=== PATIENT | female | born 1960 | race Caucasian/White ===

== ENCOUNTER → 2018-11-16 07:16 | Outpatient (CLI) | payer MEDICARE, MEDICAID, SELFPAY ==
--- NOTE | 2018-11-16 07:20 | NM_ITS ---
CARDIOLITE SPECT MYOCARDIAL PERFUSION LEXISCAN, REST AND STRESS: [facility] REVIEW QGS EF AND WALL MOTION EVALUATION: QPS - PERFUSION EVALUATION HISTORYcad DOSE: 10.59 mCi technetium 99m mibi intravenously at rest followed by 30.2 mCi technetium 99m mibi following the intravenous ministration of 0.4 mg of Lexiscan. Resting blood pressure is 113/69. Stress blood pressure 107/58. FINDINGS: Ejection fraction is calculated to be 62%. Stress images reveal decreased activity in the anterior and portion of the lateral wall. Rest images reveal improved activity in both areas. IMPRESSION: High risk abnormal stress test with anterior and a portion of the lateral wall being ischemic. Normal ejection fraction normal wall motion
--- NOTE | 2018-11-16 07:20 | CI_ITS ---
Cerebrovascular Exam Indications: 780.4 Dizziness and giddiness. IMPRESSIONS 1. The bilateral vertebral arteries are patent with normal antegrade flow. 2. Study suggests less than 20% stenosis involving the right internal carotid artery and the left internal carotid artery. 3. Small vessels noted. Carotid duplex study. Complete study and Doppler flow study including spectral analysis, color and marcus scale imaging. Location: Vascular laboratory. Patient status: Outpatient. Tables: Arterial flow: + +--------+--------+ Location V sys V ed + +--------+--------+ Right CCA - proximal 111cm/s 23.6cm/s + +--------+--------+ Right CCA - distal 88.8cm/s 22cm/s + +--------+--------+ Right ECA 138cm/s -------- + +--------+--------+ Right ICA - proximal 59cm/s 22.6cm/s + +--------+--------+ Right ICA - mid 80cm/s 37.5cm/s + +--------+--------+ Right ICA - distal 74.4cm/s 29.2cm/s + +--------+--------+ Right vertebral 35.3cm/s -------- + +--------+--------+ Left CCA - proximal 91cm/s 22.1cm/s + +--------+--------+ Left CCA - distal 74.4cm/s 22.6cm/s + +--------+--------+ Left ECA 110cm/s -------- + +--------+--------+ Left ICA - proximal 84.4cm/s 29.8cm/s + +--------+--------+ Left ICA - mid 88.8cm/s 39.7cm/s + +--------+--------+ Left ICA - distal 83.3cm/s 35.8cm/s + +--------+--------+ Left vertebral 71.1cm/s -------- + +--------+--------+ Velocity ratios: + + + + + + Right, V sys Right, V ed Left, V sys Left, V ed + + + + + + Max ICA/dist CCA 0.9 1.7 1.19 1.76 + + + + + + (Report amended ) Electronically signed by: Arnold Kaur [id number]
--- NOTE | 2018-11-16 07:43 | HMH.ITSHM ---
Current Home Medications as stated by this patient Trish Valle or patient access representative. []ASA ROSUVASTATIN LISINOPRIL CLOPIDGREL METOPROLOL HYDROCHLOROTHIAZIDE
[2018-11-16 13:12] LABS: Anion Gap 11.3 mEq/L (5-15); Blood Urea Nitrogen 15 mg/dL (7-18); Calcium 9.2 mg/dL (8.5-10.1); Carbon Dioxide 29 mmol/L (21.0-32.0); Chloride 100 mmol/L (98-107); Creatinine,Serum 0.73 mg/dL (0.55-1.02); Estimated Glomerular Filt Rate 82 ml/min (>60); GFR (African American) 100 ML/MIN (>60); Glucose 108 mg/dL (74-106); Potassium 4.3 mmoL/L (3.5-5.1); Sodium 136 mmol/L (136-145)
== END ==
PROVIDERS: PCP Internal Medicine Cardiovascular Disease; Visit Provider Internal Medicine Cardiovascular Disease
DX: I25.10 Atherosclerotic heart disease of native coronary artery without angina pectoris (principal); R06.02 Shortness of breath; R20.0 Anesthesia of skin; R60.0 Localized edema
CPT/HCPCS: 36415; 78452; 80048; 93017; 93880; A9502; J2785

== ENCOUNTER → 2018-12-22 12:17 | Outpatient (CLI) | payer MEDICARE, MEDICAID, SELFPAY ==
[2018-12-22 13:39] LABS: Anion Gap 13.2 mEq/L (5-15); Blood Urea Nitrogen 12 mg/dL (7-18); Calcium 9.4 mg/dL (8.5-10.1); Carbon Dioxide 30 mmol/L (21.0-32.0); Chloride 100 mmol/L (98-107); Creatinine,Serum 0.76 mg/dL (0.55-1.02); Estimated Glomerular Filt Rate 79 ml/min (>60); GFR (African American) 95 ML/MIN (>60); Glucose 105 mg/dL (74-106); Potassium 4.2 mmoL/L (3.5-5.1); Sodium 139 mmol/L (136-145)
== END ==
PROVIDERS: Visit Provider Internal Medicine Cardiovascular Disease
DX: E78.2 Mixed hyperlipidemia (principal); I10 Essential (primary) hypertension; I25.10 Atherosclerotic heart disease of native coronary artery without angina pectoris
CPT/HCPCS: 36415; 80048

== ENCOUNTER 2019-10-19 20:58 | Emergency (ER) | payer MEDICARE, MEDICAID, SELFPAY ==
[2019-10-19 20:57] VITALS: BP 122/87; PULSE 116; RESP 18; TEMP 36.7; O2SAT 98; BMI 35.2
[2019-10-19 21:01] VITALS: BP 122/87; PULSE 101; RESP 15; O2SAT 99
--- NOTE | 2019-10-19 21:06 | ECG_ITS ---
APPROVED REPORT Exam: Resting ECG HR:108 bpm ECG Measurements Heart Rate 108 AXES WA 140 P 68 QRSd 84 QRS 60 QT 344 T 71 QTc 460 <Conclusion> Sinus tachycardia Left atrial abnormality Low voltage QRS Borderline ECG Electronically signed by : Sam Garza, 10/21/2019 14:15:43
--- NOTE | 2019-10-19 21:07 | XR_ITS ---
PROCEDURE: XR CHEST 2V CLINICAL HISTORY: arrythmia, chest discomfort COMPARISON: CXR CHEST(2 VIEWS-NOT PORTABLE) from 04/01/2013 Chest from 11/07/2018 FINDINGS: The cardiomediastinal silhouette and pulmonary vascularity are within normal limits. There is mild prominence of the interstitium with coarsening of the bronchovascular markings. No lobar consolidation or collapse evident. The No acute bony abnormalities. IMPRESSION: Mild prominence of the interstitium. This may be better evaluated with CT if clinically desired otherwise negative Dictated by: Arnold Kaur MD 10/19/2019 22:19 Electronically signed by Arnold Kaur MD in [place] 10/19/2019 22:19
[2019-10-19 21:25] LABS: Basophils # 0.2 K/mm3 (0-0.2); Basophils % 1.3 % (0.1-2.0); Eosinophils # 0.2 K/mm3 (0.0-0.4); Eosinophils % 1.2 % (0.1-12.0); Hematocrit 48.3 % (37.0-47.0); Hemoglobin 16.2 g/dL (12.2-16.2); Lymphocytes # 3.6 K/mm3 (0.7-4.5); Lymphocytes % 24.7 % (10-50); Mean Corpuscular HGB Conc 33.6 g/dL (31.8-35.4); Mean Corpuscular Hemoglobin 29.9 pg (27.0-31.2); Mean Corpuscular Volume 89.1 fl (81-99); Mean Platelet Volume 7.1 fl (7.4-10.4); Monocytes # 0.5 K/mm3 (0.1-1.0); Monocytes % 3.7 % (1.7-9.3); Neutrophils % 69.1 % (37.0-80.0); Platelet Count 298 K/mm3 (142-424); Red Blood Count 5.42 M/mm3 (4.20-5.40); Red Cell Distribution Width 14.8 % (11.5-17.5); White Blood Count 14.5 K/mm3 (4.8-10.8)
[2019-10-19 21:26] LABS: Chloride 99 mmol/L (98-107); Potassium 3.8 mmoL/L (3.5-5.1); Sodium 142 mmol/L (136-145)
[2019-10-19 21:29] LABS: Anion Gap 12.8 mEq/L (5-15); Blood Urea Nitrogen 15 mg/dl (7-17); Carbon Dioxide 34 mmol/L (22.0-30.0); Creatinine Clearance Estimated 143 mL/min (50-200); Estimated Glomerular Filt Rate 86 ml/min (>60); GFR (African American) 104 ML/MIN (>60); Glucose 181 mg/dl (74-100)
[2019-10-19 21:35] VITALS: BP 126/94; PULSE 104; RESP 18; O2SAT 98
[2019-10-19 21:42] LABS: Troponin I < 0.01 ng/ml (0.00-0.034)
[2019-10-19 21:48] LABS: Triiodothryronine (T3) Uptake 30 % (23.5-40.5)
[2019-10-19 21:49] LABS: Free Thyroxine Index 2.7 ug/dL (5.93-13.13); T4 (Thyroxine) 9.1 ug/dl (5.53-11.0)
[2019-10-19 22:03] LABS: Thyroid Stimulating Hormone 4.45 uIU/mL (0.465-4.68)
[2019-10-19 22:05] VITALS: BP 126/84; PULSE 96; O2SAT 90
[2019-10-19 22:45] VITALS: BP 122/79; PULSE 90; RESP 16; O2SAT 90
--- NOTE | 2019-10-19 23:04 | HMH.EDARPALP ---
ED Disposition Clinical Impression: Supraventricular tachycardia Disposition: Home, Self-Care Condition on Discharge: Good Instructions: Paroxysmal Supraventricular Tachycardia Additional Instructions: see card in am Referrals: Renard Monterroso [Primary Care Provider] - Dm Case MD [Staff Physician] - - Critical Care Critical Care Time: No Attestation: On 10/19/19, the high probability of a clinically significant, sudden or life threatening deterioration of the following system(s) required my full and direct attention, intervention and personal management. The time I documented below is in addition to time spent performing reported procedures but includes the following listed in this critical care notation. Medical Decision Making - Medical Records Medical records reviewed: Yes: I reviewed the patient's medical records. - Todd Inquiry Pt receiving controlled substance: No Vital Signs: 10/19/19 20:57 10/19/19 21:01 10/19/19 21:35 Temperature 98.1 F Temperature Source Oral Pulse Rate [Right Brachial] 116 H 101 H 104 H Respiratory Rate 18 15 18 Blood Pressure [Right Arm] 122/87 122/87 126/94 H Blood Pressure Mean [Right Arm] 98 98 104 Blood Pressure Source [Right Arm] Automatic Cuff Automatic Cuff Blood Pressure Position [Right Arm] Sitting Sitting Sitting 02 Sat by Pulse Oximetry 98 99 98 Oxygen Delivery Method Room Air Room Air 10/19/19 22:05 Temperature Temperature Source Pulse Rate [Right Brachial] 96 H Respiratory Rate Blood Pressure [Right Arm] 126/84 Blood Pressure Mean [Right Arm] 98 Blood Pressure Source [Right Arm] Automatic Cuff Blood Pressure Position [Right Arm] Supine 02 Sat by Pulse Oximetry 90 L Oxygen Delivery Method Room Air - Lab Data Lab results reviewed: Yes: I reviewed the patient's lab results. Lab Results 10/19/19 21:07: WBC 14.5 H, RBC 5.42 H, Hgb 16.2, Hct 48.3 H, MCV 89.1, MCH 29.9, MCHC 33.6, RDW 14.8, Plt Count 298, MPV 7.1 L, Neut % (Auto) 69.1, Lymph % (Auto) 24.7, [place] % (Auto) 3.7, Eos % (Auto) 1.2, Baso % (Auto) 1.3, Neut # (Auto) 10.0 H, Lymph # (Auto) 3.6, [place] # (Auto) 0.5, Eos # (Auto) 0.2, Baso # (Auto) 0.2 10/19/19 21:07: Sodium 142, Potassium 3.8, Chloride 99, Carbon Dioxide 34 H, Anion Gap 12.8, BUN 15, Creatinine 0.70, Estimated Creat Clear 143, Estimated GFR 86, Est GFR ( Amer) 104, Glucose 181 H, Calcium 9.0, Troponin I < 0.01 10/19/19 21:07: TSH 4.45, Free T4 Index 2.7 L, Thyroxine (T4) 9.1, T3 Uptake 30 Result diagrams: 10/19/19 21:07 10/19/19 21:07 Orders (Tests/Meds): ORDERS Category Date Time Status Troponin I Q3H Lab 10/20/19 00:15 Ordered Troponin I Q3H Lab 10/20/19 03:15 Ordered - Radiology Data #1 Image(s): Chest Image Reviewed: Yes I reviewed the patient's radiology image Preliminary Findings: Normal/NAD - ECG Data Tracing #1 Arrhythmias present: sinus tach Ischemic changes: non-specific ST-T wave changes - Physician Consults Physician Consulted: waqar Reason -: Pt condition - Reevaluation(s) Time: 23:18 Reevaluation #1: better - CONOR Score for Non-Stemi Age of Patient: 50-59 years old Heart Rate: 110-149 bpm Systolic Blood Pressure: 120-139 mmhg Serum Creatinine: 0.40-0.79 mg/dl CHF Killip Class: I-No CHF Other Risk Factors: None Non-Stemi Risk Score: 103 Arrhythmia/Palpitations HPI - General Chief Complaint: Arrhythmia/Palpitations Stated Complaint: soa, ,incr heart rate Time Seen by Provider: 10/19/19 21:05 Mode of Arrival: EMS Source of Information: Patient, EMS, Medical Record Limitations: No Limitations - History of Present Illness HPI narrative: acute onset of flushing and fast hr - given adenosine per ems with good response - has known cad and last cath 2019- at baseline line complaint: rapid heart beat Onset (ago): hour(s) Duration: now resolved Severity: moderate Context: occurred during rest Associated symptoms: denies other symptoms
[2019-10-19 23:31] VITALS: BP 145/88; PULSE 87; RESP 16; TEMP 36.7; O2SAT 91
== END 2019-10-19 23:34 | disposition home or self-care (01) ==
PROVIDERS: Emergency Provider Emergency Medicine; PCP Pediatrics
DX: I47.1 Supraventricular tachycardia (principal); I25.10 Atherosclerotic heart disease of native coronary artery without angina pectoris; I10 Essential (primary) hypertension; I25.2 Old myocardial infarction; Z87.891 Personal history of nicotine dependence; E78.5 Hyperlipidemia, unspecified; Z95.5 Presence of coronary angioplasty implant and graft; Z79.899 Other long term (current) drug therapy
CPT/HCPCS: 71046; 80048; 84436; 84443; 84479; 84484; 85025; 93005; 99284

== ENCOUNTER → 2019-10-20 10:45 | Outpatient (CLI) | payer MEDICARE, MEDICAID, SELFPAY | PROVIDERS: PCP Pediatrics; Visit Provider Urology | DX: I47.1 Supraventricular tachycardia (principal); G47.33 Obstructive sleep apnea (adult) (pediatric) | CPT/HCPCS: 93270; G0399 ==

== ENCOUNTER → 2019-10-27 14:07 | Outpatient (CLI) | payer MEDICARE, MEDICAID, SELFPAY ==
--- NOTE | 2019-10-27 14:18 | CA_ITS ---
APPROVED REPORT EXAM: Comprehensive 2D, Doppler, and color-flow Echocardiogram Tactical/Mobile Watch Officer: Theresa Gómez RT(R) Ht: 5 ft 3 in Wt: 209lbs BSA: 1.97 BP: 129/69 mmHg Indications: CAD,PALPS,HTN,HLP 2D Dimensions LVOT 1.54 cm (M/F) 1.5-2.5 M-Mode Dimensions RVDd 3.01 cm (0.9-2.6) LVDd 4.45 cm (3.5-5.7) LVDs 3.56 cm (3.5-5.7) IVSd 0.93 cm (0.6-1.1) PWd 0.76 cm (0.6-1.1) EF (Teich) 41.20% FS 20.00% EDV (Teich) 90.10 mL ESV (Teich) 53.00 mL LV Diastology E/A Ratio 1.16 Mitral Valve MV A Velocity 53.00 (40-130 cm/s) Left Ventricle Left atrium is mildly enlarged, left ventricle is normal size, mild concentric left ventricular hypertrophy, visually estimated ejection fraction 55% with no regional wall motion abnormality. Grade 1 diastolic dysfunction seen without tissue Doppler evidence of raise left atrial pressure. Right Ventricle Right atrium and right ventricle are normal size and contractility. Aortic Valve Aortic valve is minimally thickened and fibrosed. There is no aortic stenosis or aortic insufficiency. Mitral Valve Mitral valve leaflets are minimally thickened, there is mild mitral regurgitation. Tricuspid Valve Tricuspid valve is grossly normal, there is mild tricuspid regurgitation. Tricuspid regurgitation jet velocity is inadequate for calculation of the right ventricular systolic pressure. Pulmonic Valve Pulmonic valve is poorly visualized. Great Vessels Aortic root is normal size. Pericardium No significant pericardial effusion noted. Conclusion 1. Mildly enlarged left atrium, normal left ventricular size, mild concentric left ventricular hypertrophy, visually estimated ejection fraction 55% with no regional wall motion abnormality, grade 1 diastolic dysfunction seen without tissue Doppler evidence of raise left atrial pressure. 2. Mild mitral and tricuspid regurgitation. 3. No significant pericardial effusion noted. Electronically signed by : Christopher Nicolas, 10/29/2019 20:12:49
[2019-10-27 15:40] LABS: Anion Gap 14.3 mEq/L (5-15); Blood Urea Nitrogen 13 mg/dl (7-17); Carbon Dioxide 37 mmol/L (22.0-30.0); Chloride 94 mmol/L (98-107); Estimated Glomerular Filt Rate 86 ml/min (>60); GFR (African American) 104 ML/MIN (>60); Glucose 102 mg/dl (74-100); Potassium 4.3 mmoL/L (3.5-5.1); Sodium 141 mmol/L (136-145)
== END ==
PROVIDERS: PCP Pediatrics; Visit Provider Urology
DX: G47.33 Obstructive sleep apnea (adult) (pediatric) (principal); I10 Essential (primary) hypertension; I25.2 Old myocardial infarction; I27.20 Pulmonary hypertension, unspecified; I47.1 Supraventricular tachycardia; R00.2 Palpitations; Z68.37 Body mass index [BMI] 37.0-37.9, adult; Z95.5 Presence of coronary angioplasty implant and graft; I25.10 Atherosclerotic heart disease of native coronary artery without angina pectoris; I51.9 Heart disease, unspecified
CPT/HCPCS: 36415; 80048; 93306

== ENCOUNTER → 2020-01-10 12:23 | Outpatient (CLI) | payer MEDICARE, MEDICAID, SELFPAY | PROVIDERS: PCP Family Medicine; Visit Provider Specialist | DX: G47.33 Obstructive sleep apnea (adult) (pediatric) (principal); G47.34 Idiopathic sleep related nonobstructive alveolar hypoventilation | CPT/HCPCS: 94762 ==

== ENCOUNTER → 2020-02-05 11:08 | Outpatient (CLI) | payer MEDICARE, MEDICAID, SELFPAY ==
[2020-02-05 12:42] LABS: Coronavirus 19 IgG Antibody Negative (Negative); Coronavirus 19 IgM Antibody Negative (Negative)
== END ==
PROVIDERS: Visit Provider Specialist
DX: Z01.818 Encounter for other preprocedural examination (principal)
CPT/HCPCS: 36415; 86328

== ENCOUNTER → 2020-02-05 20:15 | Outpatient (CLI) | payer MEDICARE, MEDICAID, SELFPAY | PROVIDERS: PCP Pediatrics; Visit Provider Nurse Practitioner Family | DX: Z01.89 Encounter for other specified special examinations (principal); G47.33 Obstructive sleep apnea (adult) (pediatric); G47.36 Sleep related hypoventilation in conditions classified elsewhere | CPT/HCPCS: 36415; 86328; 95811 ==

== ENCOUNTER → 2020-07-16 08:12 | Outpatient (CLI) | payer MEDICARE, MEDICAID, SELFPAY ==
--- NOTE | 2020-07-16 08:25 | CT_ITS ---
PROCEDURE: CT ANGIO CHEST CLINCIAL INDICATION: PE and Lung nodule Evaluate for pe Follow up lung nodule >office report with CT findings scanned in COMPARISON: No exams were available for comparison TECHNIQUE: IV Contrast: 70ML Isovue 370 Axial images obtained with sagittal and coronal reformats. All CT scans at the facility use one or more dose reduction, viz: automated exposure control, ma/kV adjustment per patient size (including targeted exams where dose is matched to indication, i.e. head), or iterative reconstruction technique. FINDINGS: Previous exams are not available for review. No evidence of pulmonary embolus, aortic aneurysm, or aortic dissection. There are atherosclerotic changes with calcific plaque at the ostium of the left subclavian right brachiocephalic artery. Left vertebral rises from the aortic arch with calcific plaque at its origin. There are few small mediastinal lymph nodes. No dominant adenopathy or mediastinal mass evident. Coronary artery calcifications are present. Centrilobular emphysema noted with COPD changes and scattered areas of scarring. There are scattered small parenchymal and subpleural parenchymal opacities. There is a slightly irregular nodular opacity in the right upper lobe series 3, image 36 measuring approximately 7 mm. A 4 mm noncalcified nodules present in the left upper lobe medially image 33. There is a subpleural 7 mm parenchymal opacity in the left upper lobe anteriorly image 44 series 3. Other smaller nodular opacities are present in both lungs which are too numerous dimension. No effusions or infiltrates. No central obstructing lesions. Mild degenerative changes are present in the spine. There is calcified granuloma in the right lower lobe. IMPRESSION: Centrilobular emphysema with COPD and numerous scattered parenchymal and subpleural opacities the largest in the right upper and left upper lobe at 7 mm each. Suggest 6 month follow-up to confirm stability. Dictated by: Arnold Kaur MD 07/17/2020 11:12 Arnold Kaur MD in [place] 07/17/2020 11:12
[2020-07-16 08:41] LABS: Blood Urea Nitrogen 12 mg/dl (7-17); Estimated Glomerular Filt Rate 86 ml/min (>60); GFR (African American) 104 ML/MIN (>60)
== END ==
PROVIDERS: PCP Pediatrics; Visit Provider Internal Medicine Pulmonary Disease
DX: R06.02 Shortness of breath (principal); R91.1 Solitary pulmonary nodule
CPT/HCPCS: 36415; 71275; 82565; 84520; 94060; Q9967

== ENCOUNTER → 2020-07-24 15:04 | Outpatient (CLI) | payer MEDICARE, MEDICAID, SELFPAY ==
[2020-07-24 15:36] LABS: Basophils # 0.1 K/mm3 (0-0.2); Basophils % 0.5 % (0.1-2.0); Eosinophils # 0.1 K/mm3 (0.0-0.4); Eosinophils % 0.7 % (0.1-12.0); Hematocrit 46.8 % (37.0-47.0); Hemoglobin 14.5 g/dL (12.2-16.2); Lymphocytes % 25.2 % (10-50); Mean Corpuscular Hemoglobin 29.4 pg (27.0-31.2); Mean Platelet Volume 6.8 fl (7.4-10.4); Monocytes # 0.5 K/mm3 (0.1-1.0); Neutrophils # 11.3 K/mm3 (1.8-7.8); Neutrophils % 70.6 % (37.0-80.0); Platelet Count 391 K/mm3 (142-424); Red Blood Count 4.92 M/mm3 (4.20-5.40); Red Cell Distribution Width 13.4 % (11.5-17.5)
[2020-07-24 15:41] LABS: MANUAL DIFFERENTIAL MANUAL DIFFERENTIAL (MANUAL DIFF)
[2020-07-24 17:55] LABS: Eosinophils % 3 % (0-3); Lymphocytes % 31 % (10-50); Monocytes % 2 % (2-9); Neutrophils % 64 % (42-76); Total Cells Counted 100
[2020-07-24 17:56] LABS: Platelet Estimate Normal; RBC Morphology Normal
[2020-07-27 08:50] LABS: Alpha-1-Antitrypsin 155 mg/dL (101-187)
[2020-07-29 00:05] LABS: D001-IgE D pteronyssinus 0.22 kU/L (Class 0/I); D002-IgE D farinae 0.23 kU/L (Class 0/I); E001-IgE Cat Dander <0.10 kU/L (Class 0); E005-IgE Dog Dander <0.10 kU/L (Class 0); G002-IgE Bermuda Grass 0.17 kU/L (Class 0/I); G006-IgE Timothy Grass <0.10 kU/L (Class 0); I006-IgE Cockroach, German 0.54 kU/L (Class I); Immunoglobulin E, Total 89 IU/mL (6-495); M001-IgE Penicillium chrysogen <0.10 kU/L (Class 0); M002-IgE Cladosporium herbarum <0.10 kU/L (Class 0); M003-IgE Aspergillus fumigatus <0.10 kU/L (Class 0); M006-IgE Alternaria alternata <0.10 kU/L (Class 0); T001-IgE Maple/Box Elder <0.10 kU/L (Class 0); T003-IgE Common Silver Birch <0.10 kU/L (Class 0); T006-IgE Cedar, Mountain <0.10 kU/L (Class 0); T007-IgE Oak, White 0.12 kU/L (Class 0/I); T008-IgE Elm, American <0.10 kU/L (Class 0); T011-IgE Maple Leaf Sycamore 0.15 kU/L (Class 0/I); T015-IgE Ash, White 0.19 kU/L (Class 0/I); T022-IgE Pecan, Hickory <0.10 kU/L (Class 0); T070-IgE White Mulberry <0.10 kU/L (Class 0); W001-IgE Ragweed, Short 0.15 kU/L (Class 0/I); W011-IgE Thistle, Russian 0.13 kU/L (Class 0/I); W014-IgE Pigweed, Common <0.10 kU/L (Class 0); W018-IgE Sheep Sorrel 0.13 kU/L (Class 0/I)
[2020-07-29 15:23] LABS: E072-IgE Mouse Urine <0.10 kU/L (Class 0)
== END ==
PROVIDERS: Visit Provider Internal Medicine Pulmonary Disease
DX: J44.9 Chronic obstructive pulmonary disease, unspecified; J45.40 Moderate persistent asthma, uncomplicated; Z87.891 Personal history of nicotine dependence
CPT/HCPCS: 36415; 82103; 82785; 85007; 85025; 86003

== ENCOUNTER → 2021-04-23 15:02 | Outpatient (CLI) | payer MEDICARE, MEDICAID, SELFPAY ==
--- NOTE | 2021-04-23 15:02 | CT_ITS ---
PROCEDURE INFORMATION: Exam: CT Chest Without Contrast; Diagnostic Exam date and time: 04/23/2021 3:02 PM Age: 60 years old Clinical indication: Abnormal findings; Lung mass or nodule; Not specified; Patient HX: Lung nodule follow-up; Additional info: Nodule follow up TECHNIQUE: Imaging protocol: Diagnostic computed tomography of the chest without contrast. Radiation optimization: All CT scans at this facility use at least one of these dose optimization techniques: automated exposure control; mA and/or kV adjustment per patient size (includes targeted exams where dose is matched to clinical indication); or iterative reconstruction. COMPARISON: CT ANGIO CHEST 07/16/2020 8:56 AM FINDINGS: Lungs: There are moderate centrilobular emphysematous changes of the lungs with an apical gradient. Right upper lobe 6 mm nodule, image 30 of series 601. Right upper lobe 4 mm nodule, image 23 of series 601. Left lower lobe 5 mm nodule, image 32 of series 601. Pleural spaces: Unremarkable. No pneumothorax. No pleural effusion. Heart: Moderate three-vessel calcific atherosclerotic disease of the coronary arteries. Aorta: Unremarkable. No aortic aneurysm. Lymph nodes: Prominent mediastinal and hilar lymph nodes are likely reactive. Bones/joints: Moderate multilevel discogenic degenerative changes of the thoracic spine. Soft tissues: Unremarkable. Other findings: Multiple calcified granulomas require no follow-up. Multiple mediastinal calcified nodes compatible with prior granulomatous process. IMPRESSION: Multiple sub 6 mm nodules . Recommend 12 month follow-up. COPD unchanged.
== END ==
PROVIDERS: PCP Pediatrics; Visit Provider Internal Medicine Pulmonary Disease
DX: R91.1 Solitary pulmonary nodule (principal)
CPT/HCPCS: 71250

== ENCOUNTER → 2021-10-29 09:55 | Outpatient (CLI) | payer MEDICARE, MEDICAID, SELFPAY ==
[2021-10-29 10:50] VITALS: PULSE 95; PULSE 97
== END ==
PROVIDERS: PCP Pediatrics; Visit Provider Internal Medicine Pulmonary Disease
DX: R06.00 Dyspnea, unspecified (principal)
CPT/HCPCS: 94060; 94618; 94640; 94727; 94729

== ENCOUNTER → 2022-05-13 09:53 | Outpatient (CLI) | payer MEDICARE, MEDICAID, SELFPAY ==
--- NOTE | 2022-05-13 09:53 | CT_ITS ---
FINAL REPORT TECHNIQUE: Axial images were obtained from the lung apex to the mid abdomen by computed tomography. Coronal reformatted images were obtained. This study was performed with techniques to keep radiation doses as low as reasonably achievable, (ALARA). Individualized dose reduction techniques using automated exposure control or adjustment of mA and/or kV according to the patient''s size were employed. CLINICAL HISTORY: Nodule F/U Apr-2022 COMPARISON: April 23, 2021 FINDINGS: There is no axillary adenopathy. There is no hilar or mediastinal adenopathy. Heart size is normal. There is no pericardial or pleural effusion. Limited images of the upper abdomen are unremarkable. On the lung window images there are moderate changes of emphysema with mild pulmonary scarring. There are multiple calcified granulomas. There is a ground-glass nodule in the right upper lobe measuring 6 mm, well seen on image 29. There are multiple small left upper lobe nodules measuring up to 4 mm, image 30. There are multiple other small pulmonary nodules measuring less than 5 mm. No new mass or nodule is identified. IMPRESSION: Stable small pulmonary nodules. Recommend additional follow-up in 12 months. No new mass or nodule. Reviewed, Interpreted and Dictated by Damon Cano III, MD Transcribed by Evette Portillo Authenticated and [facility]
== END ==
PROVIDERS: PCP Pediatrics; Visit Provider Internal Medicine Pulmonary Disease
DX: R91.8 Other nonspecific abnormal finding of lung field (principal)
CPT/HCPCS: 71250

== ENCOUNTER → 2023-05-03 13:35 | Outpatient (CLI) | payer MEDICARE, MEDICAID, SELFPAY ==
--- NOTE | 2023-05-03 13:37 | CA_ITS ---
APPROVED REPORT EXAM: Comprehensive 2D, Doppler, and color-flow Echocardiogram Launderette Attendant: Zaida Del Valle RDCS Ht: 5 ft 3 in Wt: 170lbs BSA: 1.80 BP: 100/62 mmHg Indications: vega dysfxn,copd,cad,koenig 2D Dimensions Left Atrium 2.69 cm F: 2.7 - 3.8 EF AP4 61.60 % LVOT 1.61 cm (M/F) 1.5-2.5 GL Strain -21.2 % M-Mode Dimensions RVDd 1.78 cm (0.9-2.6) LVDd 4.77 cm (3.5-5.7) Ao Diam 2.52 cm (2.0-3.7) LVDs 3.36 cm (3.5-5.7) IVSd 0.70 cm (0.6-1.1) PWd 0.81 cm (0.6-1.1) EF (Teich) 56.50% FS 29.60% EDV (Teich) 106.00 mL ESV (Teich) 46.10 mL LV Diastology E Decel Time 122 (160-240 msec) E/A Ratio 1.0 MED E' 7.6 (>= 7 cm/sec) E'/MED E' Ratio 11.64 (<= 14) LAT E' 8.6 (>= 10 cm/sec) E/LAT E' Ratio 10.29 (<= 14) Mitral Valve MV E Max Bravo. 88.0 (40-130 cm/s) MV A Velocity 91.0 (40-130 cm/s) E/A Ratio 0.97 MV Decel. Time 122 (160-240 ms) Left Ventricle The left ventricle is normal size. The left ventricular systolic function is normal. The left ventricular ejection fraction is within the normal range. There is normal left ventricular wall thickness. There is normal LV segmental wall motion. The left ventricular diastolic function is normal. LVEF is 55%. Right Ventricle The right ventricle is mildly dilated. The right ventricular systolic function is normal. There is increased RV wall thickness. Atria The left atrium size is normal. The right atrium size is normal. No Doppler evidence of interatrial shunt. Aortic Valve The aortic valve opens well. There is no aortic valvular stenosis. Trace aortic regurgitation. Mitral Valve The mitral valve is normal in structure. No evidence of mitral valve stenosis. Trace mitral regurgitation. Tricuspid Valve The tricuspid valve leaflets are thin and pliable. Trace tricuspid regurgitation. There is insufficient TR jet to estimate RVSP. Pulmonic Valve The pulmonary valve is normal in structure. Trace pulmonic regurgitation. Great Vessels The aortic root is normal in size. The ascending aorta is not well-visualized. IVC is normal in size and collapses >50% with inspiration. Pericardium Trivial anterior pericardial effusion. There are no echo indications of tamponade. Other Information Study Quality: Technically Difficult Conclusion Technically difficult study due to poor acoustic windows. Normal biventricular systolic function. Mild RV dilation. No significant valvular stenosis or regurgitation. Trivial pericardial effusion. Electronically signed by : Rose Oates MD 05/09/2023 22:26:30
== END ==
PROVIDERS: PCP Pediatrics; Visit Provider Physician Assistant
DX: I25.10 Atherosclerotic heart disease of native coronary artery without angina pectoris (principal); I51.89 Other ill-defined heart diseases; R06.09 Other forms of dyspnea; Z87.891 Personal history of nicotine dependence
CPT/HCPCS: 93306

== ENCOUNTER → 2023-05-12 12:46 | Outpatient (CLI) | payer MEDICARE, MEDICAID, SELFPAY ==
--- NOTE | 2023-05-12 12:48 | CT_ITS ---
FINAL REPORT TECHNIQUE: Axial CT images of the chest were obtained without contrast. Low-dose protocol was utilized. This study was performed with techniques to keep radiation doses as low as reasonably achievable (ALARA). Individualized dose reduction techniques using automated exposure control or adjustment of mA and/or kV according to the patient's size were employed. CLINICAL HISTORY: lung cancer screening former smoker quit 6 years. 2 ppd x 45 family hx of lung cancer COMPARISON: 05/13/2022 CT chest FINDINGS: CT CHEST WITHOUT, LOW DOSE SCREENING CT Di Vol: 2.90 mGy DLP: 102.12 mGy*cm There is no axillary, mediastinal, or hilar adenopathy. The heart size is normal. There is no pleural or pericardial effusion. The lung windows show a multitude of upper lobe pulmonary nodules, largest measuring 6 mm in greatest dimension seen on image 87 of series 2 in the right upper lung. Other nodules measure up to 5 mm. For example in the right upper lobe seen on image 14 of series 2 and left upper lobe on image 109 of series 2. These nodules are slightly larger than on the prior study. There is scarring or atelectasis at the lung bases. Limited images of the upper abdomen demonstrate no acute findings. IMPRESSION: Increase in size bilateral upper lobe nodules, now up to 6 mm. LR Category 3: 6 month follow-up low-dose chest CT is recommended. Reviewed, Interpreted and Dictated by Eric Rose MD Transcribed by Aziza Juárez Authenticated and [facility]
== END ==
LOC: RAD 12:46
PROVIDERS: PCP Pediatrics; Visit Provider Internal Medicine Pulmonary Disease
DX: F17.210 Nicotine dependence, cigarettes, uncomplicated (principal)
CPT/HCPCS: 71271

== ENCOUNTER 2023-11-19 14:28 | Outpatient (CLI) | payer MEDICARE, MEDICAID, SELFPAY ==
--- NOTE | 2023-11-19 14:32 | CT_ITS ---
FINAL REPORT TECHNIQUE: Axial CT images were performed from the lung apices through the upper abdomen. Coronal reformats were submitted. This study was performed with techniques to keep radiation doses as low as reasonably achievable (ALARA). Individualized dose reduction techniques using automated exposure control or adjustment of mA and/or kV according to the patient's size were employed. CLINICAL HISTORY: 6-month follow-up COMPARISON: 05/13/2023 FINDINGS: There is no axillary adenopathy. There is no hilar or mediastinal mass or adenopathy. Heart size is normal. There is no pericardial or pleural effusion. There is mild scarring/fibrosis. Calcified granulomas are seen in both lungs. There is an anteromedial right upper lobe nodule which measures 3 mm and previously measured 6 mm. This is well-seen on image 28. There is a stable, lateral left upper lobe 5 mm nodule seen on image 33. There is an improved nodule in the superior segment of the left lower lobe. Several other smaller nodules are stable. There is no new mass or nodule. IMPRESSION: Bilateral pulmonary nodules, some of which are improved and some are stable. Follow-up low-dose chest CT in 12 months is recommended. Reviewed, Interpreted and Dictated by Damon Cano III, MD Transcribed by Gabby Vazquez Authenticated and [facility]
== END 2023-11-19 23:59 | disposition home or self-care (01) ==
LOC: RAD 14:29
PROVIDERS: PCP Student in an Organized Health Care Education/Training Program; Visit Provider Internal Medicine Pulmonary Disease
DX: R91.8 Other nonspecific abnormal finding of lung field (principal)
CPT/HCPCS: 71250

== ENCOUNTER 2024-04-16 09:05 | Emergency (ER) | payer MEDICARE, MEDICAID, SELFPAY ==
[2024-04-16 09:07] VITALS: BP 137/84; PULSE 70; RESP 20; TEMP 36.4; O2SAT 95; BMI 30.6
--- NOTE | 2024-04-16 09:27 | XR_ITS ---
PROCEDURE INFORMATION: Exam: XR Left Humerus Exam date and time: 04/16/2024 10:05 AM Age: 63 years old Clinical indication: Injury or trauma; Fall; Blunt trauma (contusions or hematomas); Arm, upper; Left; Additional info: Fall, 04/14 from table, L shoulder pain w movement TECHNIQUE: Imaging protocol: Radiologic exam of the left humerus. Views: 2 or more views. COMPARISON: CR XR SHOULDER LT MIN 2V 04/16/2024 10:04 AM FINDINGS: Bones/joints: Normal. Soft tissues: Normal. IMPRESSION: No acute findings.
--- NOTE | 2024-04-16 09:27 | XR_ITS ---
PROCEDURE INFORMATION: Exam: XR Left Shoulder Exam date and time: 04/16/2024 10:04 AM Age: 63 years old Clinical indication: Injury or trauma; Fall; Blunt trauma (contusions or hematomas); Shoulder; Left; Additional info: Fall, 04/14 from table, L shoulder pain w movement TECHNIQUE: Imaging protocol: Radiologic exam of the left shoulder. Views: 2 or more views. COMPARISON: CR XR RIBS LT MIN 3V W CXR1V 04/16/2024 9:59 AM FINDINGS: Bones/joints: The acromioclavicular joint is normal. No visible fracture or dislocation. Small foci of calcification overlying the greater tuberosity in keeping with calcific tendinitis. Soft tissues: Normal. IMPRESSION: 1. No visible fracture or dislocation. 2. Small foci of calcification overlying the greater tuberosity in keeping with calcific tendinitis.
--- NOTE | 2024-04-16 09:35 | XR_ITS ---
PROCEDURE INFORMATION: Exam: XR Left Ribs with PA Chest Exam date and time: 04/16/2024 9:59 AM Age: 63 years old Clinical indication: Injury or trauma; Fall; Rib area, left side; Blunt trauma; Additional info: Fall, L deep scap pain TECHNIQUE: Imaging protocol: Radiologic exam of the left ribs with PA chest. Views: 3 views COMPARISON: CT CHEST WO CON 11/19/2023 2:33 PM FINDINGS: Lungs: Unremarkable. No consolidation. Pleural spaces: Unremarkable. No pleural effusion. No pneumothorax. Heart/Mediastinum: Unremarkable. No cardiomegaly. Bones/joints: Unremarkable. IMPRESSION: No acute findings.
--- NOTE | 2024-04-16 09:35 | XR_ITS ---
PROCEDURE INFORMATION: Exam: XR Left Scapula Exam date and time: 04/16/2024 10:07 AM Age: 63 years old Clinical indication: Injury or trauma; Fall; Blunt trauma (contusions or hematomas); Shoulder; Left; Additional info: Fall, L deep scap pain TECHNIQUE: Imaging protocol: Radiologic exam of the left scapula. Complete exam. COMPARISON: CR Humerus L 04/16/2024 10:05 AM FINDINGS: Bones/joints: Normal. Soft tissues: Normal. IMPRESSION: No acute findings.
--- NOTE | 2024-04-16 10:05 | ED_ITS ---
Discharge Plan Disposition Patient Disposition: Home, Self-Care Chief Complaint: Extremity Injury, Upper Prescriptions Prescriptions: No Action aspirin 325 mg tablet 325 mg PO DAILY levothyroxine 50 mcg capsule 50 mcg PO DAILY azelastine 137 mcg (0.1 %) aerosol,spray 1 spray NS BID PRN Rx Instructions: administer into each nostril fluticasone furoate-vilanterol [Breo Ellipta] 200-25 mcg/dose blister with device 1 inh inhalation DAILY Patient Comments: INHALE 1 PUFF INTO THE LUNGS DAILY. fluticasone propionate 50 mcg/actuation spray,suspension 1 spray NS DAILY PRN Rx Instructions: administer into each nostril metformin 500 mg tablet extended release 24 hr 500 mg PO DAILY Patient Comments: TAKE 1 TABLET BY MOUTH EVERY DAY IN THE MORNING WITH BREAKFAST montelukast [Singulair] 10 mg tablet 10 mg PO DAILY Qty: 90 2RF albuterol sulfate 90 mcg/actuation HFA aerosol inhaler 1 inh INHALATION QID PRN (Reason: shortness of breath or wheezing) Qty: 6.7 2RF citalopram 20 mg tablet 20 mg PO DAILY metoprolol succinate [Toprol XL] 100 mg tablet extended release 24 hr 50 mg PO BID Qty: 90 3RF rosuvastatin 10 mg tablet 10 mg PO DAILY Qty: 90 3RF furosemide 40 mg tablet 40 mg PO DAILY Qty: 30 5RF losartan 25 mg tablet 25 mg PO DAILY Qty: 90 3RF spironolactone [Aldactone] 25 mg tablet 25 mg PO Q OTHER DAY Qty: 30 3RF nitroglycerin 0.4 mg tablet, sublingual 0.4 mg SUBLINGUAL Q5M PRN (Reason: chest pain) Qty: 25 0RF Rx Instructions: do not exceed 3 doses per episode tiotropium bromide [Spiriva with HandiHaler] 18 mcg capsule, w/inhalation device 1 cap INHALATION DAILY Qty: 90 2RF Rx Instructions: puncture 1 cap using device; one dose = 2 inhalations ipratropium-albuterol 0.5 mg-3 mg(2.5 mg base)/3 mL solution for nebulization 3 ml INHALATION QID PRN (Reason: shortness of breath or wheezing) Qty: 90 6RF clopidogrel 75 mg tablet See Rx Instructions .ROUTE .COMPLEX Qty: 90 3RF Dose Instruction: Take 1 Tablet by mouth once daily for blood thinner. Rx Instructions: Take 1 Tablet by mouth once daily for blood thinner. Referrals Follow up/Referrals: Ryann Rowley DO [Primary Care Provider] - See instructions Activity Restrictions/Add. Instructions Additional Instructions/Restrictions: Call your family doctor to establish care for this visit to the emergency department and schedule follow-up within 48 hours to ensure improvement. If you have any worsening of your condition or any other concerning signs or symptoms, return to the emergency department or your primary care doctor for further evaluation. Take Tylenol 1000 mg every 6 hours (4 times daily) and ibuprofen 400 mg every 6 hours (4 times daily) as needed with food and water to prevent GI upset and kidney damage. Clinical Impressions Clinical Impression: Intercostal muscle strain, Acute chest wall pain Print Language Print Language: Irish Discharge ED Provider: Jeyson Reilly General Adult HPI General Chief complaint: Extremity Injury, Upper Stated complaint: AO-04/14, Fall, L shoulder pain Time Seen by Provider: 04/16/24 09:29 Mode of Arrival: Family Vehicle Source of Information: Patient, Spouse and Medical Record Limitations: No Limitations Description of Symptoms (Recalled from ER Triage Doc. by RN): Pt c/o pain with movement of L shoulder after fall from her kitchen table on Wednesday (04/14). Denies hitting head or LOC. Reports the table gave-way on one leg and she fell off laning on her L shoulder area. History of Present Illness HPI narrative: Please note that above description of symptoms, in this electronic medical record under categorization of recalled from ER triage doctor by RN are reflective of an initial nursing assessment, however, is not reflective of my full history and physical exam that was personally taken and clarified. Consequentially, this preceding description of symptoms, which may include the patient's categorized chief complaint in the EMR, do not reflect my personal clinical impression, and the ultimate description of history of present illness and patient stated complaints should be deferred to this section of the note. Unless stated otherwise or congruent with this section of the note, additional signs, symptoms, or incongruence should be interpreted as inaccurate with my clinical impression. Related Data Home Medications ?Medication ?Instructions ?Recorded ?Confirmed aspirin 325 mg tablet 325 mg PO DAILY 11/10/18 01/20/24 metformin 500 mg tablet,extended 500 mg PO DAILY 07/18/21 01/20/24 release 24 hr levothyroxine 50 mcg capsule 50 mcg PO DAILY 04/22/23 01/20/24 citalopram 20 mg tablet 20 mg PO DAILY 06/17/23 01/20/24 azelastine 137 mcg (0.1 %) nasal 1 spray intranasal BID PRN 10/21/23 01/20/24 spray fluticasone furoate 200 1 inh inhalation DAILY 10/21/23 01/20/24 mcg-vilanterol 25 mcg/dose inhalation powder (Breo Ellipta) fluticasone propionate 50 1 spray intranasal DAILY PRN 10/21/23 01/20/24 mcg/actuation nasal spray,suspension Previous Rx's ?Medication ?Instructions ?Recorded metoprolol succinate 100 mg 50 mg (1/2 x 100 mg) PO BID #90 02/26/22 tablet,extended release 24 hr tabs (Toprol XL) rosuvastatin 10 mg tablet 10 mg PO DAILY Cholesterol #90 tabs 02/26/22 furosemide 40 mg tablet 40 mg PO DAILY #30 tabs 04/20/22 montelukast 10 mg tablet 10 mg PO DAILY #90 tabs 11/04/22 (Singulair) losartan 25 mg tablet 25 mg PO DAILY #90 tabs 03/09/23 spironolactone 25 mg tablet 25 mg PO Q OTHER DAY #30 tabs 04/01/23 (Aldactone) nitroglycerin 0.4 mg sublingual 0.4 mg sublingual Q5M PRN chest 05/12/23 tablet pain #25 tabs albuterol sulfate 90 mcg/actuation 1 inh inhalation QID PRN shortness 05/13/23 aerosol inhaler of breath or wheezing #6.7 grams Spiriva with HandiHaler 18 mcg and 1 cap inhalation DAILY #90 puffs 05/19/23 inhalation capsules (tiotropium bromide) ipratropium 0.5 mg-albuterol 3 mg 3 ml inhalation QID PRN shortness 10/26/23 (2.5 mg base)/3 mL nebulization of breath or wheezing #90 mL soln clopidogrel 75 mg tablet See Rx Instructions .Route 03/02/24 .COMPLEX #90 tabs Allergies Allergy/AdvReac Type Severity Reaction Status Date / Time No Known Allergies Allergy Verified 01/20/24 15:16 [facility] Disclaimer: The information contained in this section may have been updated after the patient was seen, as this information can be updated by other users. Medical History Diastolic dysfunction Chronic respiratory failure with hypoxia Screening for lung cancer Asthma-COPD overlap syndrome COPD (chronic obstructive pulmonary disease) Allergic rhinitis, unspecified Moderate persistent asthma Pulmonary emphysema Stopped smoking with greater than 30 pack year history Lung nodule Shortness of breath Chronic respiratory failure with hypoxia and hypercapnia ENRRIQUE on CPAP Dyspnea on exertion LV dysfunction Tachycardia Coronary artery disease Surgical History History of tubal ligation History of dilation and curettage History of coronary artery stent placement History of colonoscopy History of cardiac cath Family History Other Cancer Coronary artery disease Social History Smoking Status: Former smoker alcohol intake: never substance use type: marijuana current occupational status: disabled household members: none housing: house marital status: Other Medical History Have you received the Flu Vaccine for this season: No Have you received the Pneumonia Vaccine: Yes ROS Obtained: Yes All systems reviewed & no additional complaints except as documented Physical Exam General General appearance: alert Head Head exam: atraumatic and normocephalic Eye Eye exam: Present normal appearance, PERRL and EOMI Neck Neck exam: Present normal inspection, full ROM and trachea midline Respiratory Respiratory exam: Absent respiratory distress, wheezes, stridor, accessory muscle use or prolonged expiratory phase Cardiovascular Cardiovascular exam: Present other (Pulses equal symmetric in upper and lower extremities) Abdominal Exam Abdominal exam: Present soft; Absent distention, tenderness or pulsatile mass Extremities Exam Extremities exam: Present full ROM and tenderness; Absent edema Neurological Exam Neurological exam: Present alert, oriented X3 and CN II-XII intact; Absent motor sensory deficit Skin Skin exam: Present warm and dry; Absent diaphoresis or erythema Medical Decision Making Medical Records Medical records reviewed: Yes I reviewed the patient's medical records. Screening: Per USPSTF and CDC recommendations, given the prevalence of disease in our region, it is our hospital?s policy to screen for HIV and viral Hepatitis for all patients aged 18 and over and those with ongoing risk factors. Todd Inquiry Pt receiving controlled substance: No Todd was queried for this patient: No Vital Signs: 04/16/24 09:07 Temperature 97.6 F Temperature Source Oral Pulse Rate [Right] 70 Respiratory Rate 20 Blood Pressure [Right Arm] 137/84 Blood Pressure Mean [Right Arm] 101 Blood Pressure Source [Right Arm] Automatic Cuff 02 Sat by Pulse Oximetry 95 Oxygen Delivery Method Nasal Cannula Oxygen Flow Rate (LPM) 3 Orders (Tests/Meds): ORDERS Category Date Time Status Scapula XR left [XR scapula LT] Stat Exams 04/16/24 09:35 Completed XR humerus LT Stat Exams 04/16/24 09:27 Completed XR ribs LT min 3V w CXR1V Stat Exams 04/16/24 09:35 Completed XR shoulder LT min 2V Stat Exams 04/16/24 09:27 Completed Medical Decision Narrative: 63-year-old female presenting with left shoulder pain. Patient states 2 days prior to this, she was standing on her kitchen table when legs gave out, the table fell, she landed on her left shoulder. Did not lose consciousness, did not hit her head, not having headache, neck pain, back pain or any other concerns. States that most of her pain is posterior aspect of shoulder/scapula. Not made worse with pressure. States that the only thing that she notices that makes it worse is a rowing motion, for example when she pulls up her underwear or pulls up her pants. No shortness of breath, cough, nausea, vomiting. She has been taking ibuprofen, THC Gummies and smoking THC for the pain. These seem to help. History obtained with patient. On arrival, very well-appearing. Lungs are clear. No tenderness about the shoulder or GH joint. Shoulder extension, abduction, abduction within normal limits and nontender. Elbow flexion and extension normal. She has tenderness with flexion of shoulder as well as tenderness overlying posterior proximal humerus. No outward signs of bruising, injury, deformity, etc. Neurovascular intact left upper extremity. No tenderness over clavicle, scapular spine, supraspinatus, infraspinatus. No tenderness about the scapula at all. Patient states that the pain feels deeper than where I am able to push. History obtained the patient. Because pain largely not present at rest when not moving, not able to isolate pain with applied pressure, no meds were given here in the emergency department. X-rays were obtained, on independent to rotation, these demonstrated no acute bony abnormality, no pneumothorax. Because patient at baseline without signs or symptoms of clinical decompensation, deemed appropriate for discharge. Results were relayed to patient who voiced understanding and were agreeable to outpatient management and follow up. I discussed my clinical impression with patient and answered all questions. At this time, the evidence for any other entities in the differential is insufficient to warrant any further testing or ED observation. This was explained as well. Advisory was given that persistent or worsening symptoms require further evaluation. I confirmed the understanding of this discussion.. Tick Sewer disclaimer Much of this encounter note is an electronic reducing machine operator spoken language to printed text. Electronic reducing machine operator of the spoken language may permit errors. Although I have reviewed the note, some errors may still exist. Critical Care Critical Care Time Critical Care Time: No
--- NOTE | 2024-04-16 10:08 | PC.NURSE ---
going to radiology
--- NOTE | 2024-04-16 10:20 | PC.NURSE ---
Back from radiology
[2024-04-16 11:16] VITALS: BP 130/80; PULSE 70; RESP 18; TEMP 36.4; O2SAT 92
== END 2024-04-16 11:24 | disposition home or self-care (01) ==
PROVIDERS: Emergency Provider Emergency Medicine; PCP Student in an Organized Health Care Education/Training Program
DX: S29.011A Strain of muscle and tendon of front wall of thorax, initial encounter (principal); R07.89 Other chest pain; M25.512 Pain in left shoulder; W17.89XA Other fall from one level to another, initial encounter; Y93.89 Activity, other specified; Y92.000 Kitchen of unspecified non-institutional (private) residence as the place of occurrence of the external cause
CPT/HCPCS: 71101; 73010; 73030; 73060; 99283

== ENCOUNTER 2024-07-19 09:30 | Outpatient (CLI) | payer MEDICARE, MEDICAID, SELFPAY ==
[2024-07-19] MEDS: ALBUTEROL 0.083% 2.5 MG/3 ML NEB IH (09:59)
== END 2024-07-19 23:59 | disposition home or self-care (01) ==
LOC: RT 09:31
PROVIDERS: PCP Student in an Organized Health Care Education/Training Program; Visit Provider Internal Medicine Pulmonary Disease
DX: R06.09 Other forms of dyspnea (principal); J44.9 Chronic obstructive pulmonary disease, unspecified
CPT/HCPCS: 94060; 94618; J7613

== ENCOUNTER 2024-12-13 15:33 | Outpatient (CLI) | payer MEDICARE, MEDICAID, SELFPAY ==
--- OUTSIDE RECORDS SUMMARY | 2024-10-23 13:15 | XMS_ITS | Encounter Summary ---
Author Organization [place] [address] Care Team Providers Care Operations Research Manager Name Role Phone Ryann Rowley Primary Care Provider + [phone] Reason for Visit * Reason Comments Urinary Frequency Burning /painful uri [place] , blood in urine , started 3 days ago Encounter Details Date Type Department Care Team (Latest Contact Info) Description 10/23/2024 1:15 PM EDT Office Visit [facility] [address] Thad Monterroso MD [address] [place] [address] UTI (urinary tract infection), uncomplicated (Primary Dx); Chronic respiratory failure with hypoxia (HCC); COPD, moderate (HCC) Social History Tobacco Use Types Packs/Day Years Used Date Smoking Tobacco: Former Cigarettes 1.5 36.5 0 1979 - 12/27/2015 Smokeless Tobacco: Never Alcohol Use Standard Drinks/Week Comments Never 0 (1 standard drink = 0.6 oz pur e alcohol) AUDIT-C Answer Date Recorded Frequency of Alcohol Consumption Never 01/23/2019 Average Number of Drinks Not on file 019 Frequency of Binge Drinking Not on file 01/2019 PHQ-2 Answer Date Recorded PHQ-2 Total Score 0 11/25/2023 Sexually Active Control Partners Comments Not Currently Comments No Sex and Gender Information Value Date Recorded Sex Assigned at Not on file Legal Sex Female 7:36 AM EDT Gender Identity Not on file Sexual Orientation Not on file documented as of this encounter Last Filed Vital Signs Vital Sign Reading Time Taken Comments Blood Pressure 106/68 10/23/2024 1:10 PM EDT Pulse 88 10/23/2024 1:10 PM EDT Temperature 36.7 C (98.1 F) 10/23/2024 1:10 PM EDT Respiratory Rate 16 10/23/2024 1:10 PM EDT Oxygen Saturation 94% 10/23/2024 1:10 PM EDT Inhaled Oxygen Concentration - - Weight 78.9 kg (174 lb) 10/23/2024 1:10 PM EDT Height 160 cm (5' 3 ) 10/23/2024 1:10 PM EDT Body Mass Index 30.82 10/23/2024 1:10 PM EDT documented in this encounter Functional Status * Is the person deaf or does he/she have serious difficulty hearing? Answer Date of Assessment Author No 11/03/2021 10:00 AM EDT Sae Stanley MA * Is the person blind or does he/she have serious difficulty seeing even when wearing glasses? Answer Date of Assessment Author No 11/03/2021 10:00 AM EDT Sae Stanley MA * Does this person have serious difficulty walking or climbing stairs? Answer Date of Assessment Author No 11/03/2021 10:00 AM Sae Donato MA * Does this person have difficulty dressing or bathing? Answer Date of Assessment Author No 11/03/2021 10:00 AM Sae Donato MA * Because of a physical, mental or emotional condition, does this person have difficulty doing errands alone such as visiting a doctor's office or shopping? Answer Date of Assessment Author No 11/03/2021 10:00 AM Sae Donato MA documented as of this encounter Mental Status * Because of a physical, mental or emotional condition, does this person have serious difficulty concentrating, remembering or making decisions? Answer Entry Date Author No 11/03/2021 10:00 AM Sae Donato MA documented in this encounter Ordered Prescriptions Prescription Sig Dispense Quantity Refills Last Filled Start Date End Date sulfamethoxazole-tr imethoprim (BACTRIM DS) 800-160 mg Oral TabletIndications:U TI (urinary tract infection), uncomplicated Take 1 Tablet by mouth every 12 hours for 7 days. 14 Tablet 10/23/2024 documented in this encounter Progress Notes * Thad Monterroso MD - 10/23/2024 1:15 PM EDTAssociated Problem(s): Chronic respiratory failure with hypoxia (HCC) Stable on current inhaler regiment and nasal cannula oxygen. No worsening wheezing or respiratory issues reported. * Thad Monterroso MD - 10/23/2024 1:15 PM EDTAssociated Problem(s): COPD, moderate (HCC) COPD is chronic and stable at this time. Stable on current inhaler regimen. -COPD is managed longitudinally requires follow-up every 6 months or sooner if issues occur * Thad Monterroso MD - 10/23/2024 1:15 PM EDT Assessment & Plan UTI (urinary tract infection), uncomplicated Orders: sulfamethoxazole-trimethoprim (BACTRIM DS) 800-160 mg Oral Tablet; Take 1 Tablet by mouth every 12 hours for 7 days. URINE CULTURE (NO STAIN); Future SEP URINALYSIS POC Will treat suspected UTI with Bactrim follow-up urine culture results and adjust antibiotics as needed. Chronic respiratory failure with hypoxia (HCC) Stable on current inhaler regiment and nasal cannula oxygen. No worsening wheezing or respiratory issues reported. COPD, moderate (HCC) COPD is chronic and stable at this time. Stable on current inhaler regimen. -COPD is managed longitudinally requires follow-up every 6 months or sooner if issues occur Progress Note: Vitals: 10/23/24 1310 BP: 106/68 Pulse: 88 Resp: 16 Temp: 98.1 ??F (36.7 ??C) TempSrc: Tympanic SpO2: 94% Weight: 174 lb (78.9 kg) Height: 5' 3 (1.6 m) Body mass index is 30.82 kg/m??. SUBJECTIVE: Chief Complaint Patient presents with Urinary Frequency Burning /painful urination , blood in urine , started 3 days ago HPI: Urinary Tract Infection: Patient complains of dysuria, frequency, urgency She has had symptoms for 3 days. Patient denies back pain, fever, stomach ache, and vaginal discharge. Patient does have a history of recurrent UTI. Patient does not have a history of pyelonephritis. She also has a history of COPD which is well-controlled with her current controller inhalers. No recent flares or exacerbations. She is on 24/7 nasal cannula oxygen for respiratory support for chronic hypoxia as well. Again stable at this time Review of Systems Constitutional: Negative for activity change, chills, fatigue and fever. Genitourinary: Positive for dysuria, frequency and urgency. Negative for vaginal bleeding, vaginal discharge and vaginal pain. OBJECTIVE: Physical Exam Vitals reviewed. Constitutional: General: She is not in acute distress. Appearance: She is not ill-appearing. Abdominal: Palpations: Abdomen is soft. Tenderness: There is no abdominal tenderness. There is no right CVA tenderness, left CVA tenderness, guarding or rebound. Neurological: General: No focal deficit present. Mental Status: She is alert and oriented to person, place, and time. documented in this encounter Plan of Treatment Not on file documented as of this encounter Goals Goal Patient Goal Type Associated Problems Recent Progress Patient-Stated? Author Blood Pressure < 140/90 Blood Pressure 124/72(2024 9:47 AM EDT) No Sae Stanley MA Maintain a healthy diet, exercise regularly and maintain an ideal body weight General No Thad Monterroso MD BMI (Calculated) < 30 General 29.3(11/25/19 9:47 AM EDT) No Thad Monterroso MD Stay Tobacco Free Lifestyle No Thad Monterroso MD HEMOGLOBIN A1C < 7.0 Result Component 5.8( 8:37 AM EDT) No Thad Monterroso MD documented as of this encounter Procedures Procedure Name Priority Date/Time Associated Diagnosis Comments URINE CULTURE (NO STAIN) Routine 10/23/2024 1:25 PM EDT UTI (urinary tract infection), uncomplicated SEP URINALYSIS POC Routine 10/23/2024 1: 22 PM EDT UTI (urinary tract infection), uncomplicated documented in this encounter Results * (ABNORMAL) URINE CULTURE (NO STAIN) (10/23/2024 1:25 PM EDT) Culture Positive Growth(A) 10/25/2024 1:18 PM EDT [facility] Culture >100,000 CFU/mL Staphylococcus saprophyticus SUSCEPTI BILITY RESULT 10/25/2024 1:18 PM EDT [facility] Comment: isolated in addition to multiple bacterial species consistent with urogenital commensal organisms. Staphylococcus saprophyticus typically responds to urine concentrations of nitrofurantoin, trimethoprim/sulfa, or a fluoroquinolone commonly used to treat acute, uncomplicated urinary tract infections No further workup. Urine STRUCTURE OF URINARY TRACT PROPER / Unknown 10/23/2024 1:25 PM EDT 10/23/2024 1:25 PM EDT Thad Monterroso MD MICROBIOLOGY - GENERAL ORDERAB LES Final Result [employer] [address] [facility] [address] [place] [address] * (ABNORMAL) SEP URINALYSIS POC (10/23/2024 1:22 PM EDT) UA Color POC Yellow Color 10/23/2024 1:24 PM EDT [facility] [place] UA Appear POC Clear Clear 10/23/2024 1:24 PM EDT [facility] [place] UA Gluc POC Negative Negative mg/dL 10/23/2024 1:24 PM EDT [facility] [place] UA Bili POC Negative Negative 10/23/2024 1:24 PM EDT [facility] [place] UA Ketones POC Negative Negative mg/dL 10/23/2024 1:24 PM EDT [facility] [place] UA SG POC 1.020 1.001 - 1.035 no units 10/23/2024 1:24 PM EDT [facility] [place] UA Blood POC Trace-Intact (A) Negative 10/23/2024 1:24 PM EDT [facility] [place] UA pH POC 7.0 5.0 - 8.0 pH 10/23/2024 1:24 PM EDT [facility] [place] UA Protein POC Negative Negative mg/dL 10/23/2024 1:24 PM EDT [facility] [place] UA Urobilinogen POC 0.2 0.2, 1.0 10/23/2024 1:24 PM EDT [facility] [place] UA Nitrite POC Negative Negative 10/23/2024 1:24 PM EDT [facility] [place] UA Leuk Est POC Trace(A) Negative 1:24 PM EDT [facility] [place] Urine STRUCTURE OF URINARY TRACT PROPER / Unknown 10/23/2024 1:22 PM EDT 10/23/2024 1:24 PM EDT Thad Monterroso MD POINT OF CARE TEST ORDERABLES Final Result [facility] [place] [address] [place] [id number] documented in this encounter Visit Diagnoses Diagnosis UTI (urinary tract infection), uncomplicated- Primary Urinary tract infection, site not specified Chronic respiratory failure with hypoxia (HCC) Chronic respiratory failure COPD, moderate (HCC) Chronic airway obstruction, not elsewhere classified documented in this encounter Additional Health Concerns Infection Onset Date Last Indicated Resolved Time ESBL organism 02/12/2023 03/01/2024 documented as of this encounter Care Teams Operations Research Manager Relationship Specialty Start Date End Date Ryann [place] DO [address] [place] [id number] PCP - General Family Medicine 11/10/23 documented as of this encounter
--- OUTSIDE RECORDS SUMMARY | 2024-11-24 09:30 | XMS_ITS | Encounter Summary ---
Author Organization [place] [address] Care Team Providers Care Water Supervisor Name Role Phone Ryann Rowley Primary Care Provider + [phone] Reason for Visit * Reason Comments Dizziness Hot flashes,nausea a nd diarrhea for a week Encounter Details Date Type Department Care Team (Latest Contact Info) Description 11/24/2024 9:30 AM EDT Office Visit SEP Pedro Luis [address] [place] [phone] Jenny Jacobson, PROSPECTING DRILLER HELPER [address] [place] [address] Viral gastroenteritis (Primary Dx); Vitamin D deficiency [...] this encounter Progress Notes * Jenny Jacobson, PROSPECTING DRILLER HELPER - 11/24/2024 9:30 AM EDT Assessment & [...] in color. She has not taken any [id number] antidiarrheal medication. She is currently on a [...] The provider educated the patient (or legal agency sales representative) on the use of the ambient listening artificial intelligence tool, [employer]. They were informed that this AI tool [...] of such information, the patient (or legal agency sales representative), and each individual in attendance [...] - 150.0 ng/mL 11/24/2024 5:19 PM EDT [facility] Comment: Preferred: >= 30 ng/mL Insufficient: 21-29 [...] ORDERABLES Final R esult Performing Organization Address [facility]/ZIP Co de Phone Number [facility], [address] , [place] [address] * MAGNESIUM LEVEL (11/24/2024 10:35 AM EDT) Magnesium 2.1 1.6 - 2.4 mg/dL 11/24/2024 4:59 PM EDT [facility] Blood VENOUS BLOOD / Unknown Venipuncture / Unknown 11/24/2024 10:35 AM EDT 11/24/2024 10:35 AM EDT Jenny Jacobson APRN CHEMISTRY ORDERABLES Hayley l Result Performing Organization Address [facility] Co de Phone Number [facility], [address] , [place] [address] * (ABNORMAL) COMPREHENSIVE METABOLIC PANEL [...] 11/24/2024 4:59 PM EDT [facility], [facility] BUN 12 8 - 23 mg/dL 11/24/2024 4:59 PM EDT [facility], [facility] Creatinine 0.70 0.51 - 1.30 mg/dL 11/24/2024 4:59 PM EDT [facility], [facility] Albumin 4.6 3.2 - 4.6 gm/dL 11/24/2024 4:59 PM EDT [facility], [facility] Total Protein 7.7 6.4 - 8.3 gm/dL 11/24/2024 4:59 PM EDT [facility] Bili Total 0.3 0.2 - 1.3 mg/dL 11/24/2024 4:59 PM EDT [facility] ALT 7 <=41 U/L 11/24/2024 4:59 PM EDT [facility] AST 18 <=40 U/L 11/24/2024 4:59 PM EDT [facility], [facility] Alk Phos 80 36 - 123 U/L 11/24/2024 4:59 PM EDT [facility], [facility] eGFR (CKD-EPIcr 2020) 97 >=60 mL/min/1.7 3 m2 11/24/2024 4:59 PM EDT [facility], [facility] Comment:Estimated GFR was ca lculated using the CKD-EPIcr (2020) equation refit without race. The equation is recommended by the National Kidney Foundation - [place] [employer] of Nephrology Task Force. Blood VENOUS BLOOD / Unknown Venipuncture / Unknown 11/24/2024 10:35 AM EDT 11/24/2024 10:35 AM EDT us Jenny Jacobson PROSPECTING DRILLER HELPER CHEMISTRY ORDERABLES Hayley l Result [facility], [facility] [address] [facility] , [place] [address] documented in this encounter Visit [...] documented as of this encounter Care Teams Water Supervisor Relationship Specialty Start Date End Date Ryann Rowley DO [address] [place] [id number] PCP - General Family Medicine 11/10/23 documented as of this encounter
--- NOTE | 2024-12-13 15:30 | CT_ITS ---
FINAL REPORT TECHNIQUE: Axial images were obtained from the lung apex to the mid abdomen by computed tomography. This study was performed with techniques to keep radiation doses as low as reasonably achievable (ALARA). Individualized dose reduction techniques using automated exposure control or adjustment of mA and/or kV according to the patient's size were employed. CLINICAL HISTORY: lung cancer screening, former smoker, quit 7 years ago, smoked 1.5-2ppd for 40 years COMPARISON: 05/12/2023 and 11/19/2023 FINDINGS: CHEST CT LOW DOSE CTDI vol (mGy): 2.90 DLP (mGy-cm): Nine 6.38 There is no axillary adenopathy. There is no hilar or mediastinal adenopathy. The heart is normal in size. There is prominent coronary artery calcification. There is no pericardial or pleural effusion. There is a stable left upper lobe nodule on series 4, image 28 measuring 5 mm. There is a stable left lower lobe nodule measuring 4 mm on image 56. Right upper lobe nodule measures 6 mm is unchanged. This is well-seen on image 28. No new mass or nodule is identified. There is no evidence of consolidation. Limited images of the upper abdomen are unremarkable. IMPRESSION: Stable pulmonary nodules as detailed above. Modifier S: Prominent coronary artery calcification. Lung RADS category 2S. Recommend 12 month follow-up low-dose chest CT. Reviewed, Interpreted and Dictated by Jenn Cloud MD Transcribed by Christie Cortes Authenticated and [facility]
--- OUTSIDE RECORDS SUMMARY | 2024-12-13 15:35 | XMS_ITS | Clinical Summary ---
Author Organization [facility] Address [address] [place] [address] Care Team Providers Care Deburring And Tooling Machine Operator Name Role Phone Unavailable Primary Care Provider Unavailabl e Allergies No known active allergies Medications aspirin EC 325 MG tablet Take 325 mg by mouth Daily. 4 Active lisinopril (PRINIVIL,ZESTR IL) 10 MG tablet Take 1 tablet by mouth Daily. 90 tablet 3 8 Active nitroglycerin (NITROSTAT) 0.4 MG SL tablet 1 under the tongue as needed for angina, may repeat q5mins for up three doses 25 tablet 7 9 Active metoprolol succinate XL (TOPROL-XL) 25 MG 24 hr tablet TAKE 1 TABLET BY MOUTH EVERY DAY 90 tablet 3 9 Active clopidogrel (PLAVIX) 75 MG tablet Take 1 tablet by mouth Daily. Need an appointment for further refills 30 tablet 9 Active rosuvastatin (CRESTOR) 10 MG tablet TAKE 1 TABLET BY MOUTH EVERY DAY 90 tablet 0 Active Active Problems Problem Noted Date Diagnosed Date CAD (coronary artery disease) 05/07/2016 Overview (05/07/2016): a. July 2005, STEMI with 4.5 x 24 Libert BMS to diagonal, EF 40%. b. December 2006, MPS fixed lateral defect. No reversibility, EF 60%. VHD (valvular heart disease) 05/07/2016 Overview (05/07/2016): Valvular heart disease: June 2015, echo with mild MR, TR, normal LVEF, aortic sclerosis, no stenosis. Dyslipidemia 05/07/2016 Overview (05/07/2016): Dyslipidemia, January 2013: Total cholesterol 96, triglycerides 193, HDL 32, LDL 25. Hypertension 05/07/2016 Overview (05/07/2016): Hypertension, presumed essential. Bipolar disorder 05/07/2016 Tobacco use 05/07/2016 Family History Medical History Relation Name Comments No Known Problems Father Cancer Mother Heart attack Mother Lung disease Mother Relation Name Status Comments Father Mother Social History Tobacco Use Types Packs/Day Years Used Date Smoking Tobacco: Former Cigarettes Q uit: 09/08/2015 Alcohol Use Standard Drinks/Week Comments No 0 (1 standard drink = 0.6 oz pur e alcohol) Abuse Screen Answer Date Recorded Unsafe at Home or Work/School Not on file Feels Threatened by Someone? Not on file 01/2023 Does Anyone Keep You from Co ntacting Others or Doint Things Outside the Home? Not on file 02/22/2023 Physical Sign of Abuse Present Not on file 1 Housing Stability Answer Date Recorded Current Living Arrangements Not on file 01/2023 Potentially Unsafe Housing Conditions Not on benito e 02/22/2023 Family and Community Support Answer Sudarshan e Recorded Help with Day-to-Day Activities Not on file 02/22/2023 Lonely or Isolated Not on file 02/22/2023 Employment Answer Date Recorded Do you want help finding or keeping work or a edith b? Not on file 02/22/2023 Disabilities Answer Date Recorded Concentrating, Remembering, or Making Decisions Difficulty Not on file 02/22/2023 Doing Errands Independently Difficulty Not on fi le 02/22/2023 Education Answer Date Recorded Help with school or training? Not on file Preferred Language Not on file 02/22/2023 Comments Unknown Sex and Gender Information Value Date Recorded Sex Assigned at Not on file Legal Sex Female 12:27 PM EDT Gender Identity Not on file Sexual Orientation Not on file Last Filed Vital Signs Vital Sign Reading Time Taken Comments Blood Pressure 116/90 04/12/2018 11:02 AM EST Pulse 112 04/12/2018 11:02 AM EST Temperature - - Respiratory Rate - - Oxygen Saturation - - Inhaled Oxygen Concentration - - Weight 90.7 kg (200 lb) 04/12/2018 11:02 AM EST Height 160 cm (5' 3 ) 04/12/2018 11:02 AM EST Body Mass Index 35.43 04/12/2018 11:02 AM EST Plan of Treatment Health Maintenance Due Date Last Done Comments Annual Gynecologic Pelvic and Breast Exam 1962 TDAP/TD VACCINES (1 - Tdap) 1981 MAMMOGRAM 2002 COLOGUARD 2007 COLON CANCER SCREENING 5 YEAR SIGMOIDOSCOPY 2007 COLONOSCOPY 2007 [address]AL CANCER SCREENING 2007 CT COLONOGRAPHY 2007 FECAL OCCULT BLOOD TEST 2007 FIT Testing (1 year) 2007 Pneumococcal Vaccine 50+ (1 of 1 - PCV) 2012 ZOSTER VACCINE (1 of 2) 2012 ANNUAL PHYSICAL 04/12/2017 HEPATITIS C SCREENING 04/12/2017 COVID-19 Vaccine ( - 2023- season) 2024 INFLUENZA VACCINE 02/14/2025 Insurance [employer] - [place] MED[place] Member Subscriber Plan / Payer (Ef fective 2016-Present) Name:Trish Valle Relation to Subscriber:Self Name:Trish Valle Payer ID:[id number] Group ID:Not on file Type:Not on file Address: [address] MEDICARE ADVANTAGE
--- OUTSIDE RECORDS SUMMARY | 2024-12-13 15:35 | XMS_ITS | Encounter Summary ---
Author Organization [facility] Address [address] [place] [address] Care Team Providers Care Motion Picture Set Worker Name Role Phone Ryann Rowley DO Primary Care Provider + [phone] Reason for Visit * Reason Comments Medication Refill Encounter Details Date Type Department Care Team (Late st Contact Info) Description 12/04/2024 Refill [facility] [address] [place] [address] Ryann Rowley DO [address] [place] [address] Medication Refill Social History Tobacco Use Types Packs/Day Years [...] on file documented as of this encounter Functional Status * Is the [...] 10:00 AM EDT Sae Stanley MA documented as of this encounter Mental Status * Because of a physical, mental or emotional condition, does this person have serious difficulty concentrating, remembering or making decisions? Answer Entry Date Author No 11/03/2021 10:00 AM EDT Sae Stanley MA documented in this encounter Miscellaneous Notes * Telephone Encounter - Felisha Gonzalez CPhT - 12/06/2024 7:55 AM EDT Montelukast Refill requested too soon. Refill denied. Last sent on 04/26/24 for a 90 day supply with 3 refills. Pt notified via [employer] if active. 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
--- OUTSIDE RECORDS SUMMARY | 2024-12-13 15:35 | XMS_ITS | Encounter Summary ---
Author Organization [facility] [place] [address] Care Team Providers Care Wine Sales Representative Name Role Phone RowleyRyann Primary Care Provider + [phone] Encounter Details Date Type Department Care Team (Latest Contact Info) Description 11/26/2024 Results Follow-Up SEP [facility] [address] [place] [address] Jenny Jacobson, COUNTY ADMINISTRATOR [address] [place] [address] VITAMIN D 25 HYDROXY, COMPREHENSIVE METABOLIC PANEL, MAGNESIUM LEVEL Social History Tobacco Use Types Packs/Day Years [...] Sae Stanley MA documented in this encounter Plan of Treatment [...] documented as of this encounter Visit Diagnoses Not on filedocumented in this encounter Additional Health Concerns Infection Onset Date Last Indicated Resolved Time ESBL organism 02/12/2023 03/01/2024 documented as of this encounter Care Teams Wine Sales Representative Relationship Specialty Start Date End Date Ryann Rowley DO [address] [place] [address] PCP - General Family Medicine 11/10/23 documented as of this encounter
--- OUTSIDE RECORDS SUMMARY | 2024-12-13 15:35 | XMS_ITS | Clinical Summary ---
Author Organization [facility] Address [address] [place] [address] Phone Care Team Providers Care Hand Stamper Name Role Phone Ryann Rowley DO Primary Care Provider + [phone] Allergies Active Allergy Reactions Criticality Noted Date Comments Lisinopril Cough 01/23/2019 Medications aspirin 325 mg Oral Tablet, Delayed Release (E.C.) Take 325 mg by mouth. 014 Active nitroGLYCERIN (NITROSTAT) 0.4 mg SL Tablet, Sublingual 1 under the tongue as needed for angina, may repeat q5mins for up three doses 019 Active Blood-Glucose Meter [facility] KitIndications:Typ e 2 diabetes mellitus with hyperlipidemia (HCC) 1 Device by NOT APPLICABLE route 4 times daily (before meals and nightly). 1 Kit 1 020 Active Lancets [facility] MiscIndications:Ty pe 2 diabetes mellitus with hyperlipidemia (HCC) 1 Device by NOT APPLICABLE route daily. 100 Each 3 020 Active azelastine (ASTELIN) 137 mcg (0.1 %) Nasl Aerosol, SprayIndications:S easonal allergic rhinitis, unspecified trigger 022 Active citalopram (CELEXA) 20 mg Oral TabletIndications: Hot flashes Take 1 Tablet by mouth daily. 90 Tablet 3 024 Active fUROsemide (LASIX) 40 mg Oral TabletIndications: Atherosclerosis of [place] coronary artery of [place] heart without angina pectoris,Diastolic dysfunction Take 1 Tablet by mouth daily. 90 Tablet 3 Active metFORMIN (GLUCOPHAGE XR) 500 mg Oral ER 24 hr tabletIndications: Type 2 diabetes mellitus with hyperlipidemia (HCC) Take 1 Tablet by mouth every morning. with breakfast 90 Tablet 3 024 Active metoprolol succinate ER (TOPROL-XL) 100 mg Oral Tablet Sustained Release 24 hrIndications:Riley tolic dysfunction,Suprav entricular tachycardia Take 0.5 Tablets by mouth 2 times daily. 90 Tablet 3 024 Active montelukast (SINGULAIR) 10 mg Oral TabletIndications: Seasonal allergic rhinitis, unspecified trigger Take 1 Tablet by mouth daily for 360 days. 90 Tablet 3 024 2024 Active rosuvastatin (CRESTOR) 10 mg Oral TabletIndications: Type 2 diabetes mellitus with hyperlipidemia (HCC) Take 1 Tablet by mouth daily. 90 Tablet 3 024 Active spironolactone (ALDACTONE) 25 mg Oral TabletIndications: Atherosclerosis of [place] coronary artery of [place] heart without angina pectoris,Diastolic dysfunction Take 1 Tablet by mouth every 48 hours for 360 days. 45 Tablet 3 024 2024 Active clopidogreL (PLAVIX) 75 mg Oral Tablet Take 1 Tablet by mouth daily. 90 Tablet 2 Active lancets (AltruikUCH DELICA PLUS LANCET) 33 gauge [facility] 100 Each by Other route daily. 100 Each 3 Active Blood Sugar Diagnostic (ONETOUCH VERIO TEST STRIPS) [facility] StripIndications:T ype 2 diabetes mellitus with hyperlipidemia (HCC) 200 Strips by Other route daily. 100 Strip 2 Active ciprofloxacin HCl (CILOXAN) 0.3 % Opht DropsIndications:A cute bacterial conjunctivitis of left eye Place 1 Drop into the left eye 3 times daily. 5 mL Active Additional Information Patient not taking.Reported on 10/23/2024 meclizine (ANTIVERT) 12.5 mg Oral TabletIndications: Dizziness Take 1 Tablet by mouth See Admin Instructions. Take one (1) tablet one (1) hour before travel, repeat every 12-24 hours if needed. 30 Tablet 05/01/2 025 Active ergocalciferol (VITAMIN D) 1,250 mcg (50,000 unit) Oral CapsuleIndications :Vitamin D deficiency Take 1 Capsule by mouth once a week. 8 Capsule 2 025 Active albuterol-ipratrop ium (DUO-NEB) 3 mg-0.5 mg(2.5 mg base)/3 mL Inhl Solution for Nebulization INHALE THE CONTENTS OF 1 VIAL VIA NEBULIZER AT 8AM, 12PM, 4PM & AT 8PM FOR 30 DAYS 360 mL 11 025 Active LEVOthyroxine (SYNTHROID) 50 mcg Oral TabletIndications: Hypothyroidism (acquired) Take 1 Tablet by mouth daily. 90 Tablet 3 025 Active BREO ELLIPTA 200-25 mcg/dose Inhl Disk with DeviceIndications: Asthma with COPD (HCC) INHALE 1 PUFF BY MOUTH INTO THE LUNGS DAILY 180 Each 1 025 Active loperamide (IMODIUM) 2 mg Oral CapsuleIndications :Viral gastroenteritis Take 1 Capsule by mouth 4 times daily as needed for Diarrhea. 20 Capsule 025 Active BREO ELLIPTA 200-25 mcg/dose Inhl Disk with DeviceIndications: Asthma with COPD (HCC) INHALE 1 PUFF BY MOUTH INTO THE LUNGS DAILY 180 Each 025 2024 Discontinued ondansetron (ZOFRAN) 4 mg Oral TabletIndications: Viral gastroenteritis Take 1 Tablet by mouth every 6 hours as needed for Nausea for up to 10 days. 30 Tablet 025 2024 Active Problems Patient Care Coordination No te Formatting of this note migh t be different from the original. Care gap audit completed by Radha Moreno RN on 04/28/2023. Problem Noted Date Diagnosed Date Vitamin D deficiency 09/15/2024 Leukocytosis 11/26/2023 Overview (12/01/2023): Peripheral smear showed normal cells 11/2023 History of coronary artery stent placement 02/12 History of [place] (myocardial infarction) 02/12/2023 Neuropathic pain of upper extremity 02/12/2023 Obesity (BMI 30.0-34.9) 02/12/2023 Primary osteoarthritis of right knee 02/12/2023 ENRRIQUE on CPAP 02/12/2023 Overview (01/21/2024): Managed by [facility] Dr. Debra Mcmahon New mask and supplies sent by their office 01/2024 Chronic respiratory failure with hypoxia 023 Overview (11/25/2023): continuous oxygen use, 3L rest, exertion 4L Assessment & Plan (10/23/2024 1:29 PM EDT): Stable on current inhaler regiment and nasal cannula oxygen. No worsening wheezing or respiratory issues reported. Assessment & Plan (11/25/2023 11:39 AM EDT): continuous oxygen use, 3L rest, exertion 4L Assessment & Plan (11/10/2023 10:26 AM EDT): Continue supplemental oxygen Asthma with COPD 10/08/2020 Overview (03/03/2022): On ICS/Laba Uses supplemental oxygen 3L at rest, 4L with exertion. Assessment & Plan (04/19/2024 4:40 PM EST): Stable, continue current Orders: BREO ELLIPTA 200-25 mcg/dose Inhl Disk with Device; Inhale 1 Puff into the lungs daily. Assessment & Plan (11/25/2023 11:38 AM EDT): On ICS/Laba Uses supplemental oxygen 3L at rest, 4L with exertion. Supplemental oxygen dependent 10/08/2020 Overview (10/08/2020): 3L at rest, 4L with exertion. COPD, moderate 01/23/2020 Overview (10/08/2020): PFT 12/2019 with moderate obstructive lung disease. Lung imaging with nodule She is being managed by pulmnology at [facility], Dr. Paige Almaguer [phone] Assessment & Plan (10/23/2024 1:29 PM EDT): COPD is chronic and stable at this time. Stable on current inhaler regimen. -COPD is managed longitudinally requires follow-up every 6 months or sooner if issues occur Assessment & Plan (11/25/2023 11:39 AM EDT): continuous oxygen use, 3L rest, exertion 4L Follow with pulmonology Lung nodule 01/17/2020 Overview (11/25/2023): Being followed by [facility] pulmnology. Under surveillance, no growth. Follow up CT in a year (11/2024) Type 2 diabetes mellitus with hyperlipidemia Overview (11/25/2023): Lab Results Component Value Date HGBA1C 5.8 (H) 05/18/2023 HGBA1C 6.3 (H) 11/05/2022 HGBA1C 6.2 (H) 11/03/2021 Assessment & Plan (09/14/2024 8:36 AM EDT): Goal A1C: < 6.5 and TIR >70% - Last A1c - 6.1 - 11/25/2023 - at goal - A1C ordered today Nephropathy Assessment: - microalbumin ordered today Medication Management: - a reassessment of the patients current diagnoses, medications, labs, potential SE, appropriate dose and risks assessed and discussed today Orders: LIPID PANEL REFLEX; Future HEMOGLOBIN A1C; Future MICROALBUMIN/CREATININE RATIO URINE; Future Assessment & Plan (04/19/2024 4:40 PM EST): Goal A1C: < 6.5 and TIR >70% - Last A1c - 6.1 - 11/25/2023 - at goal Medication Management: - medication management decisions took place at today's visit (see orders) - a reassessment of the patients current diagnoses, medications, labs, potential SE, appropriate dose and risks assessed and discussed today Will recheck A1c in 3-6 months Orders: metFORMIN (GLUCOPHAGE XR) 500 mg Oral ER 24 hr tablet; Take 1 Tablet by mouth every morning. with breakfast rosuvastatin (CRESTOR) 10 mg Oral Tablet; Take 1 Tablet by mouth daily. Assessment & Plan (11/25/2023 11:40 AM EDT): Goal A1C: < 6.5 and TIR >70% - Last A1c - 5.8 - 05/18/2023 - at goal Compliance: - compliant with diet and medications Medication Management: - a reassessment of the patients current diagnoses, medications, labs, potential SE, appropriate dose and risks assessed and discussed today Continue metformin Diastolic dysfunction 10/31/2019 Overview (10/31/2019): Noted mild diastolic dysfunction on E[facility]. EF 55% at that time Assessment & Plan (04/19/2024 4:40 PM EST): Orders: fUROsemide (LASIX) 40 mg Oral Tablet; Take 1 Tablet by mouth daily. spironolactone (ALDACTONE) 25 mg Oral Tablet; Take 1 Tablet by mouth every 48 hours. metoprolol succinate ER (TOPROL-XL) 100 mg Oral Tablet Sustained Release 24 hr; Take 0.5 Tablets by mouth 2 times daily. PSVT (paroxysmal supraventricular tachycardia) 0 10/26/2019 Overview (10/08/2020): Rate control on Toprol Assessment & Plan (11/25/2023 11:38 AM EDT): Rate controlled with metoprolol Hypothyroidism (acquired) 01/23/2019 Overview (10/08/2020): On synthroid Assessment & Plan (09/14/2024 8:36 AM EDT): - Last TSH - .707 - 11/25/2023 Compliance: - compliant with medications Medication Management: - a reassessment of the patients current diagnoses, medications, labs, potential SE, appropriate dose and risks assessed and discussed today Orders: TSH REFLEX TO FT4; Future Assessment & Plan (04/19/2024 4:40 PM EST): Stable continue current dose Will recheck values in 3 months Orders: LEVOthyroxine (SYNTHROID) 50 mcg Oral Tablet; Take 1 Tablet by mouth daily. Bipolar disorder, in full re mission, most recent episode depressed 05/07/2016 Assessment & Plan (11/25/2023 11:40 AM EDT): Stable on celexa Assessment & Plan (11/10/2023 10:28 AM EDT): Stable on celexa Atherosclerosis of [place] co ronary artery of [place] heart without angina pectoris 05/07/2016 Overview (10/08/2020): a. July 2005, STEMI with 4.5 x 24 Libert BMS to diagonal, EF 40%. b. December 2006, MPS fixed lateral defect. No reversibility, EF 60%. C. On BB, ARB, statin, ASA, and Plavix Cardiology at [facility], Dr. NILAM Nicoals Assessment & Plan (04/19/2024 4:40 PM EST): Orders: fUROsemide (LASIX) 40 mg Oral Tablet; Take 1 Tablet by mouth daily. spironolactone (ALDACTONE) 25 mg Oral Tablet; Take 1 Tablet by mouth every 48 hours. Dyslipidemia 05/07/2016 Overview (01/23/2019): Dyslipidemia, January 2013: Total cholesterol 96, triglycerides 193, HDL 32, LDL 25. Essential hypertension 05/07/2016 Overview (01/23/2019): Hypertension, presumed essential. VHD (valvular heart disease) 05/07/2016 Overview (01/23/2019): Valvular heart disease: June 2015, echo with mild MR, TR, normal LVEF, aortic sclerosis, no stenosis. Resolved Problems Problem Noted Date Diagnosed Date Resolved Date Acute pain of right knee 02/12/2023 Dyspnea on exertion 02/12/2023 11/10/19 24 Elevated TSH 02/12/2023 11/10/2023 Encounter for pre-operative cardiovascular clearance 02/12/2023 11/10/2023 Hyperlipidemia 02/12/2023 11/10/2023 LV dysfunction 02/12/2023 11/10/2023 Palpitations 02/12/2023 11/10/2023 Pulmonary hypertension 02/12/202305/18 Tachycardia 02/12/2023 11/25/2023 COPD (chronic obstructive pulmonary disease) 3 05/14/2023 Coronary artery disease 02/12/2023 12/0 08/2023 Hypertension 02/12/2023 11/10/2023 Supraventricular tachycardia 02/12/2023 11/10/2023 Class 2 severe obesity with serious comorbidity and body mass index (BMI) of 36.0 to 36.9 in adult 10/08/2020 11/05/2022 Overview (10/08/2020): Diet Limited exercise due to underlying lung disease Assessment & Plan (10/08/2020 11:54 AM EDT): Will see if we can get an upright rolling walker to help with ambulation in hopes she will get more mobility and exercise. ENRRIQUE (obstructive sleep apnea) 10/26/2019 11/10/2023 Overview (10/08/2020): On CPAP Managed by [facility] Dr. Debra Mcmahon Tobacco use 05/07/2016 01/23/2019 Encounters Date Type Department Care Team Description 12/04/2024 Refill [facility] [place] [phone] Ryann Rowley, DO Medication Refill 11/26/2024 [facility] [address] [place] [phone] Jenny Jacobson APRN VITAMIN D 25 HYDROXY, COMPREHENSIVE METABOLIC PANEL, MAGNESIUM LEVEL 11/24/2024 9:30 AM EDT Office Visit [address] [place] [phone] Jenny Jacobson APRN Viral gastroenteritis (Primary Dx); Vitamin D deficiency 11/16/[address] [place] [phone] Ryann Rowley, DO Medication Refill 10/25/2024 Results Follow-Up [address] [place] [phone] Thad Monterroso MD URINE CULTURE (NO STAIN) 10/23/2024 1:15 PM EDT Office Visit [address] [place] [phone] Thad Monterroso MD UTI (urinary tract infection), uncomplicated (Primary Dx); Chronic respiratory failure with hypoxia (HCC); COPD, moderate (HCC) 10/16/2024 Orders Only [address] [place] [phone] Ryann Rowley, DO Hypothyroidism (acquired) 09/27/2024 Telephone [facility] Urogynecology [address] [phone] Torrey Rivas MA Prior Authorization (Mirabegron 25mg) 09/19/[address] [place] [phone] Ryann Rowley, DO Medication Refill 09/15/[address] [place] [phone] Ryann oRwley, DO Results 09/15/2024 Results Follow-Up [address] [place] [phone] Ryann Rowley, LIPID PANEL REFLEX, HEMOGLOBIN A1C, CBC WITH DIFF, Additional followed-up results: 5 09/14/2024 8:00 AM EDT Office Visit [address] [place] [phone] Ryann Rowley, Dizziness (Primary Dx); Type 2 diabetes mellitus with hyperlipidemia (HCC); Hypothyroidism (acquired); Vitamin D deficiency, unspecified; Malaise and fatigue; Dyspnea on exertion from Last 3 Months Immunizations Immunization Administration Dates Next Due DTaP, Unspecified Formulation 1962 Pfizer SARS-CoV-2 Bivalent B ooster Vaccine 12+ Years (Membreno border) 03/03/2022 Pfizer SARS-CoV-2 Vaccine 12 + Yrs (Purple Cap) 11/11/2020,10/12/2020 Pneumococcal Conjugate Vacci ne 20 Valent 03/03/2022 Pneumococcal Polysaccharide 23 Valent 12/27/2019 Polio, Unspecified Formulation 02/03/1979,1978,1962 Td, Unspecified Formulation 11/13/1997,0 01/13/1989,02/03/1979,12/09 Surgical History Surgery Date Site/Laterality Comments EYE SURGERY TUBAL LIGATION HIP SURGERY Medical History Medical History Date Comments Hypertension Hyperlipidemia Thyroid disease Family History Medical History Relation Name Comments Mental Illness Daughter Heart Disease Maternal Grandmother Diabetes Mother Heart Disease Mother Arthritis Paternal Aunt Cancer Paternal Aunt Heart Disease Paternal Grandmother Relation Name Status Comments Brother Daughter Maternal Grandmother Mother Paternal Aunt Paternal Grandmother Sister Alive Son Social History Tobacco Use Types Packs/Day Years [...] on file Sexual Orientation Not on file Obstetrics History Para Term AB IAB SAB Ectopic Multiple Livin g Live Births 2 Date Outcome GA Total Labor Labor/2nd/3rd Weight Sex Type Anes PTL Zelda A1 A5 Name Clin Last Filed Vital Signs Vital Sign Reading [...] Mass Index 29.19 11/24/2024 9:47 AM EDT Plan of Treatment Health Maintenance Due Date Last Done Comments DTaP/TDaP/Td (4 - Tdap) 11/14/1997 11/13/18 98, 01/13/1989, 02/03/1979, Additional history exists Colonoscopy 2007 FIT 2007 Sigmoidoscopy 2007 Virtual Colonography 2007 Zoster (1 of 2) 2012 Cologuard 02/03/2022 02/03/2019, 02/03/2019 Colon Cancer Screening 02/03/2022 RSV or 60+ (1 - Risk 60-74 years 1-dose series) 2022 COVID-19 Vaccine (2023- season) 2024 03/03/2022, 11/11/2020, 10/12/2020 Low Dose Lung Cancer Screening 11/18/2024 11/19/2023, 05/12/2023, 05/13/2022, Additional history exists Wellness Exam Medicare 11/25/2024 , 11/03/2021, 10/26/2019 Influenza Vaccine (#1) 2025 Hemoglobin A1c 03/17/2025 09/14/2024, 11/14, 05/18/2023, Additional history exists Kidney Health: uACR 09/14/2025 09/14/2024, 11/10/2023, 11/05/2022 Lipids 09/14/2025 09/14/2024, 11/14, 11/05/2022, Additional history exists Diabetic Eye Exam 10/26/2025 10/27/2023, 11/03/2021 Kidney Health: eGFR 11/24/2025 11/24/2024, 09/14/2024, 03/22/2024, Additional history exists Breast Cancer Screening 12/16/2025 12/17/19 24, 11/18/2021, 01/03/2020, Additional history exists Pap Smear 02/12/2026 02/12/2023, 12/27/2019 Cervical Cancer Screening 02/13/2028 HPV/Pap Cotest 02/13/2028 02/12/2023 Hepatitis C Screening Completed 01/23/2019 Pneumococcal Vaccine 50+ Completed 03/03/2022, 12/15 Hepatitis B Vaccine Aged Out No longe r eligible based on patient's age to complete this topic Meningococcal B Vaccine Aged Out No l onger eligible based on patient's age to complete this topic Goals Goal Patient Goal Type Associated Problems [...] 8:37 AM EDT) No Thad Monterroso MD Procedures Procedure Name Priority Date/Time Associated Diagnosis Comments MAGNESIUM LEVEL Routine 11/24/2024 10:35 AM EDT Viral gastroenteritis COMPREHENSIVE METABOLIC PANEL Routine 11/24/2024 10:35 AM EDT Viral gastroenteritis VITAMIN D 25 HYDROXY Routine 11/24/2024 10:35 AM EDT Vitamin D deficiency URINE CULTURE (NO STAIN) Routine 10/23/2024 1:25 PM EDT UTI (urinary tract infection), uncomplicated SEP URINALYSIS POC Routine 10/23/2024 1: 22 PM EDT UTI (urinary tract infection), uncomplicated MICROALBUMIN/CREATINI NE RATIO URINE Routine 09/14/2024 10:16 AM EDT Type 2 diabetes mellitus with hyperlipidemia (HCC) TSH REFLEX TO FT4 Routine 09/14/2024 8:3 7 AM EDT Hypothyroidism (acquired) Malaise and fatigue VITAMIN D 25 HYDROXY Routine 09/14/2024 8:37 AM EDT Malaise and fatigue Vitamin D deficiency, unspecified VITAMIN B12 LEVEL Routine 09/14/2024 8:3 7 AM EDT Malaise and fatigue COMPREHENSIVE METABOLIC PANEL Routine 09/14/2024 8:37 AM EDT Dizziness Malaise and fatigue CBC WITH DIFF Routine 09/14/2024 8:37 AM EDT Dizziness Malaise and fatigue HEMOGLOBIN A1C Routine 09/14/2024 8:37 AM EDT Type 2 diabetes mellitus with hyperlipidemia (HCC) LIPID PANEL REFLEX Routine 09/14/2024 8: 37 AM EDT Type 2 diabetes mellitus with hyperlipidemia (HCC) MM MAMMO DIGITAL ELOISA SCREEN BILAT Routine 12/17/2023 9:59 AM EDT Visit for screening mammogram HM LDCT Routine 11/19/2023 12:05 PM EDT DIABETES EYE EXAM Routine 10/27/2023 SECURITY CLERK CYTOLOGY REQUEST (PAP ONLY) Routine 02/12/2023 3:11 PM EDT Pap smear for cervical cancer screening COLOGUARD Routine 02/03/2019 10:34 AM EDT Special screening for malignant neoplasms, colon Screening for malignant neoplasm of the rectum HCV ANTIBODY SCREEN W/ REFLEX Routine 01/23/2019 10:42 AM EDT Need for hepatitis C screening test Encounter to establish care with new doctor from Last 3 Months or Most Recently Relevant to Health Maintenance Results * VITAMIN D 25 HYDROXY (11/24/2024 10:35 AM EDT) Only the most recent of2 resultswithin the time period is included. Vit D 25 OH 30.9 30.0 - 150.0 ng/mL 11/24/2024 5:19 PM EDT [employer] [employer] Comment: Preferred: >= 30 ng/mL Insufficient: 21-29 [...] ORDERABLES Final R esult Performing Organization Address [facility] Co de Phone Number [facility] [employer] [address] , [place] [address] * MAGNESIUM LEVEL (11/24/2024 10:35 AM EDT) Pathologist [facility] Magnesium 2.1 1.6 - 2.4 mg/dL 11/24/2024 4:59 PM EDT [facility] [employer] [facility] Blood VENOUS BLOOD / Unknown Venipuncture / Unknown 11/24/2024 10:35 AM EDT 11/24/2024 10:35 AM EDT Jenny Jacobson APRN CHEMISTRY ORDERABLES Hayley l Result Performing Organization Address City/[facility] Co de Phone Number [facility] [employer] [address] , [place] [address] * (ABNORMAL) COMPREHENSIVE METABOLIC PANEL (11/24/2024 10:35 AM EDT) Only the most recent of2 resultswithin the time period is included. Sodium 139 136 - 145 mmol/L 11/24/2024 4:59 PM EDT [facility] [employer] [facility] Potassium 4.0 3.5 - 5.0 mmol/L 11/24/2024 4:59 PM EDT [facility] Chloride 100 98 - 107 mmol/L 11/24/2024 4:59 PM EDT [facility] Total CO2 28 22 - 29 mmol/L 11/24/2024 4:59 PM EDT [facility] Anion Gap 11 7 - 16 mmol/L 11/24/2024 4:59 PM EDT [facility] Calcium 10.1 8.8 - 10.4 mg/dL 11/24/2024 4:59 PM EDT [facility] Glucose Lvl 104(H) 70 - 99 mg/dL 11/24/2024 4:59 PM EDT [facility] BUN 12 8 - 23 mg/dL 11/24/2024 4:59 PM EDT [facility] Creatinine 0.70 0.51 - 1.30 mg/dL 11/24/2024 4:59 PM EDT [facility] Albumin 4.6 3.2 - 4.6 gm/dL 11/24/2024 4:59 PM EDT [facility] Total Protein 7.7 6.4 - 8.3 gm/dL 11/24/2024 4:59 PM EDT [facility] Bili Total 0.3 0.2 - 1.3 mg/dL 11/24/2024 4:59 PM EDT [facility] ALT 7 <=41 U/L 11/24/2024 4:59 PM EDT [facility] AST 18 <=40 U/L 11/24/2024 4:59 PM EDT [facility] Alk Phos 80 36 - 123 U/L 11/24/2024 4:59 PM EDT [facility] eGFR (CKD-EPIcr 2020) 97 >=60 mL/min/1.7 3 m2 11/24/2024 4:59 PM EDT [facility] Comment:Estimated GFR was ca lculated using the CKD-EPIcr (2020) equation refit without race. The equation is recommended by the National Kidney Foundation - [place] [employer] Nephrology Task Force. Blood VENOUS BLOOD / Unknown Venipuncture / Unknown 11/24/2024 10:35 AM EDT 11/24/2024 10:35 AM EDT Jenny Seaman [employer] CULINARY CHEF CHEMISTRY ORDERABLES Hayley l Result Performing Organization Address City/[facility] Co de Phone Number [facility] [employer] [facility] [address] , [place] [address] * (ABNORMAL) URINE CULTURE (NO STAIN) (10/23/2024 1:25 PM EDT) Pathologist [facility] Culture Positive Growth(A) 10/25/2024 1:18 PM EDT [facility] [employer] [facility] Culture >100,000 CFU/mL Staphylococcus saprophyticus [facility] RESULT 10/25/2024 1:18 PM EDT [employer] [facility] Comment: isolated in addition to multiple bacterial [...] MICROBIOLOGY - GENERAL ORDERAB LES Final Result Performing Organization Address [facility] de Phone Number [facility] [employer] [address] , [place] [address] * (ABNORMAL) SEP URINALYSIS POC (10/23/2024 1:22 PM EDT) UA Color POC Yellow Color 10/23/2024 1:24 PM EDT [facility] [place] UA Appear POC Clear Clear 10/23/2024 1:24 PM EDT [facility] UA Gluc POC Negative Negative mg/dL 10/23/2024 1:24 PM EDT [facility] UA Bili POC Negative Negative 10/23/2024 1:24 PM EDT [facility] [place] UA Ketones POC Negative Negative mg/dL 10/23/2024 1:24 PM EDT [facility] [place] UA SG POC 1.020 1.001 - 1.035 no units 10/23/2024 1:24 PM EDT [facility] UA Blood POC Trace-Intact (A) Negative 10/23/2024 1:24 PM EDT [facility] UA pH POC 7.0 5.0 - 8.0 pH 10/23/2024 1:24 PM EDT [facility] [place] UA Protein POC Negative Negative mg/dL 10/23/2024 1:24 PM EDT [facility] [place] UA Urobilinogen POC 0.2 0.2, 1.0 10/23/2024 1:24 PM EDT [facility] [place] UA Nitrite POC Negative Negative 10/23/2024 1:24 PM EDT [facility] [place] UA Leuk Est POC Trace(A) Negative 1:24 PM EDT [facility] Urine STRUCTURE OF URINARY TRACT PROPER / Unknown 10/23/2024 1:22 PM EDT 10/23/2024 1:24 PM EDT Thad Monterroso MD POINT OF CARE TEST ORDERABLES Final Result Performing Organization Address [facility] de Phone Number [facility] [address] [place] [address] * MICROALBUMIN/CREATININE RATIO URINE (09/14/2024 10:16 AM EDT) Urine Microalb <12.0 mg/L 09/15/2024 12:26 AM EDT [facility] [employer] Urine Creatinine 200.0 mg/dL 09/16/19 25 12:26 AM EDT [employer], Z[employer] Ur Microalb/Creat 025 12:26 AM EDT [email or web address], [facility] Comment: Because the albumin level is below the level of detection in this urine specimen, the laboratory is unable to calculate a reliable albumin/creatinine ratio. Microalbuminuria is unlikely if the urine albumin concentration is less than 20- 30 mg/L in a random specimen. Urine STRUCTURE OF URINARY TRACT PROPER / Unknown 09/14/2024 10:16 AM EDT 09/14/2024 10:16 AM EDT Ryann Rowley DO URINE ORDERABLES Final Resul t Performing Organization Address City/[facility]/ZIP Co de Phone Number [email or web address] [address] [facility] , [place] [address] * (ABNORMAL) LIPID PANEL REFLEX (09/14/2024 8:37 AM EDT) Cholesterol 134 <200 mg/dL 09/14/2024 9:49 PM EDT [facility] Comment: < 200 Desirable 200 - 239 Borderline High >= 240 High Triglyceride 190(H) <150 mg/dL 09/14/2024 9:49 PM EDT [facility] Comment: < 150 Normal 150 - 199 Borderline High 200 - 499 High >= 500 Very High HDL 41 >=40 mg/dL 09/14/2024 9:49 PM EDT [facility] Comment: > 60 Optimal 40 - 60 Acceptable < 40 Low LDL Calculated 61 <100 mg/dL 09/14/2024 9:49 PM EDT [facility] Comment: < 100 Optimal 100 - 129 Near or above optimal 130 - 159 Borderline High 160 - 189 High >= 190 Very High The National Institutes of Health (NIH) equation is used for all lipid panels that report calculated LDL (LDL-C). Non-HDL-C Calculated 93 <=129 mg/dL 09/14/2024 9:49 PM EDT [facility] Comment: <130 Desirable 130-159 Above Desirable 160-189 Borderline High 190-219 High >= 220 Very High Fasting Specimen? Yes None 025 9:49 PM EDT [facility] Blood VENOUS BLOOD / Unknown Venipuncture / Unknown 09/14/2024 8:37 AM EDT 09/14/2024 8:37 AM EDT us Ryann Rowley DO CHEMISTRY ORDERABLES Final R esult [facility] [address] [facility] , [place] [address] * TSH REFLEX TO FT4 (09/14/2024 8:37 AM EDT) TSH Reflex 1.270 0.270 - 4.200 mcIU/mL 09/14/2024 9:49 PM EDT [facility] Blood VENOUS BLOOD / Unknown Venipuncture / Unknown 09/14/2024 8:37 AM EDT 09/14/2024 8:37 AM EDT Narrative [email or web address], [facility] - 09/14/2024 9:49 PM EDT Ingestion of delaney doses of biotin (>5 mg/day) taken within 8 hours of drawing blood sample can interfere with this immunoassay test. us Ryann Rowley DO CHEMISTRY ORDERABLES Final R esult [email or web address], [facility] [address] [facility] , [place] [address] * (ABNORMAL) CBC WITH DIFF (09/14/2024 8:37 AM EDT) WBC 10.8(H) 3.7 - 10.3 x10(3)/mcL 09/14/2024 9:30 PM EDT [facility] RBC 4.53 3.90 - 5.20 x10(6)/mcL 09/14/2024 9:30 PM EDT [facility] Hgb 12.9 11.2 - 15.7 g/dL 09/14/2024 9:30 PM EDT [facility] Hct 41.9 34.0 - 45.0 % 09/14/2024 9:30 PM EDT [facility] MCV 92.5 80.0 - 100.0 fL 09/14/2024 9:30 PM EDT [facility] MCH 28.5 26.0 - 34.0 pg 09/14/2024 9:30 PM EDT [facility] MCHC 30.8 30.7 - 35.5 g/dL 09/14/2024 9:30 PM EDT [facility] RDW 13.5 <=14.9 % 09/14/2024 9:30 PM EDT [facility] Platelet 285 155 - 369 x10(3)/mcL 09/14/2024 9:30 PM EDT [facility] MPV 9.1 8.8 - 12.5 fL 09/14/2024 9:30 PM EDT [facility] Neut Percent 59.1 % 09/14/2024 9:30 PM EDT [facility] Comment:Neutrophils equals s egs plus bands Imm Gran% 0.4 % 09/14/2024 9:30 PM EDT [facility], [facility] Comment:Automated count of m etamyelocytes, myelocytes and promyelocytes. Lymph Percent 32.6 % 09/14/2024 9:30 PM EDT [facility] Worth Percent 6.2 % 09/14/2024 9:30 PM EDT [facility], [facility] Eos Percent 1.1 % 09/14/2024 9:30 PM EDT [facility] Baso Percent 0.6 % 09/14/2024 9:30 PM EDT [facility], [facility] Neut # 6.4(H) 1.6 - 6.1 x10(3)/[facility] 09/14/2024 9:30 PM EDT [facility], [facility] Comment:Neutrophils equals s egs plus bands IMMGRAN# 0.0 0.0 - 0.1 x10(3)/[facility] 09/14/2024 9:30 PM EDT [facility], [facility] Comment:Automated count of m etamyelocytes, myelocytes and promyelocytes. An absolute IG <0.1 is reported as 0.0. Lymph # 3.5 1.2 - 3.9 x10(3)/[facility] 09/14/2024 9:30 PM EDT [facility] Worth # 0.7 0.3 - 0.9 x10(3)/[facility] 09/14/2024 9:30 PM EDT [facility], [facility] Eos# 0.1 0.0 - 0.5 x10(3)/[facility] 09/14/2024 9:30 PM EDT [facility], [facility] Baso # 0.1 0.0 - 0.1 x10(3)/[facility] 09/14/2024 9:30 PM EDT [facility], [facility] Blood VENOUS BLOOD / Unknown Venipuncture / Unknown 09/14/2024 8:37 AM EDT 09/14/2024 8:37 AM EDT Ryann Rowley DO HEMATOLOGY ORDERABLES Final Result Performing Organization Address [facility]/ZIP Co de Phone Number [facility] [employer] , [address] [place] [id number] * (ABNORMAL) HEMOGLOBIN A1C (09/14/2024 8:37 AM EDT) Pathologist [facility] Hgb A1C 5.8(H) 4.2 - 5.6 % 09/14/2024 9:54 PM EDT [facility] [employer] [facility] Est. Avg Glucose 120 mg/dL 09/14/2024 9:54 PM EDT [facility] Blood VENOUS BLOOD / Unknown Venipuncture / Unknown 09/14/2024 8:37 AM EDT 09/14/2024 8:37 AM EDT Narrative [facility] [employer] [facility] - 09/14/2024 9:54 PM EDT REFERENCE RANGE: Normal: 4.0-5.6% Pre-diabetes: 5.7-6.4% Provisional diagnosis of diabetes: >6.4% Hgb F>10% and anything which shortens red cell survival, such as hemolytic anemia, or unstable hemoglobin variants such as HbSS, HbSC, or HbCC, will lower the HbA1c value associated with a given level of glycemic control. Ryann Rowley DO CHEMISTRY ORDERABLES Final R esult Performing Organization Address [facility] Co de Phone Number [facility] [employer] [address] , [place] [address] * VITAMIN B12 LEVEL (09/14/2024 8:37 AM EDT) [facility] Vitamin B12 360 232 - 1,245 pg/mL 09/14/2024 9:58 PM EDT [employer] [facility] Blood VENOUS BLOOD / Unknown Venipuncture / Unknown 09/14/2024 8:37 AM EDT 09/14/2024 8:37 AM EDT Narrative [facility] - 09/14/2024 9:58 PM EDT Ingestion of delaney doses of biotin (>5 mg/day) taken within 8 hours of drawing blood sample can interfere with this immunoassay test. Ryann Rowley DO CHEMISTRY ORDERABLES Final R esult [email or web address], [facility] [address] [facility] , [place] [address] * MM MAMMO DIGITAL ELOISA SCREEN BILAT (12/17/2023 9:59 AM EDT) Anatomical Region Laterality Modality Breast Bilateral Mammography 12/20/2023 9:47 AM EDT Impressions 12/20/2023 9:47 AM EDT Negative ([id number]) ~ RECOMMENDATION: Routine screening mammogram in 1 year. ~ DISCLAIMER * Any patient with a palpable abnormality, unexplained by breast imaging, should be managed on clinical basis by the attending physician. * Breast imaging has a false negative rate of 15%. * The patient was notified by mail of the results of this examination. *The patient's information was entered into a reminder system with a target due date for the next mammogram, in accordance with the [employer] and the Society of Breast Imaging recommendations. Narrative 12/20/2023 9:47 AM EDT Procedure:MM MAMMO DIGITAL ELOISA SCREEN BILAT ~ Reason for exam: screening, asymptomatic. Z12.31-Encounter for screening mammogram for malignant neoplasm of azqgfh-NEO-19-CM ~ MM MAMMO DIGITAL ELOISA SCREEN BILAT Bilateral CC and MLO view(s) were taken. Technologist: RT Nia There are scattered fibroglandular densities. Prior study comparison: Compared with prior studies the most recent being 11/18/21, 01/03/20. No mammographic evidence of malignancy. No suspicious calcifications. ~ Procedure Note Sam Hirsch DO - 12/20/2023 Procedure:MM MAMMO DIGITAL ELOISA SCREEN BILAT ~ Reason for exam: screening, asymptomatic. Z12.31-Encounter for screening mammogram for malignant neoplasm of cqwskw-FTN-11-CM ~ MM MAMMO DIGITAL ELOISA SCREEN BILAT Bilateral CC and MLO view(s) were taken. Technologist: RT Nia There are scattered fibroglandular densities. Prior study comparison: Compared with prior studies the most recentbeing 11/18/21, 01/03/20. No mammographic evidence of malignancy. No suspicious calcifications. ~ IMPRESSION: Negative ([id number]-[id number]) ~ RECOMMENDATION: Routine screening mammogram in 1 year. ~ DISCLAIMER * Any patient with a palpable abnormality, unexplained by breast imaging, should be managed on clinical basis by the attending physician. * Breast imaging has a false negative rate of 15%. * The patient was notified by mail of the results of this examination. *The patient's information was entered into a reminder system with atarget due date for the next mammogram, in accordance with the [employer] and the Society of Breast Imaging recommendations. Ryann Rowley DO IMG MAMMOGRAPHY ORDERABLES F inal Result * LDCT (11/19/2023 12:05 PM EDT) [facility] Final Res ult Performing Organization Address [facility] de Phone Number SEP OFFICE * DIABETES EYE EXAM (10/27/2023) Left Diabetic Retinopathy Not Present Present/Not Present SEP OFFICE Right Diabetic Retinopathy Not Present Present/Not Present SEP OFFICE 10/27/2023 [facility] Final Res ult Performing Organization Address [facility] de Phone Number SEP OFFICE * SECURITY CLERK CYTOLOGY REQUEST (PAP ONLY) (02/12/2023 3:11 PM EDT) CASE REPORT Gynecologic Cytology Report Case: [id number] Authorizing Provider: Ryann Rowley DO Collected: 02/12/2023 1511 Ordering Location: [facility] Received: 02/12/2023 1511 First Screen: Xavier Nickerson CT Specimen: LIQUID-BASED PAP - CERVICAL/ENDOCERV ICAL, Cervix, Endocervical 02/18/2023 8:51 AM EDT [facility] PAP FINAL DIAGNOSIS Negative for intraepithelial lesion or malignancy 02/18/2023 8:51 AM EDT [facility] at 0851 EDT MICROSCOPIC DESCRIPTION Microscopic examination is performed and the findings corroborate the diagnosis. 02/18/2023 8:51 AM EDT [facility] PAP SMEAR ADEQUACY Satisfactory for evaluation 02/18/2023 8:51 AM EDT [facility] PAP ORGANISMS NOTED Abundant bacteria present. 02/18/2023 8:51 AM EDT [facility] ENDOCERVICAL T-ZONE Transformation zone present 02/18/2023 8:51 AM EDT [facility] EMBEDDED IMAGES 8:51 AM EDT [facility] PAP DISCLAIMER The Pap Smear is a screening test that aids in the detection of cervical cancer and cancer precursors. Both false positive and false negative results can occur. The test should be used at regular intervals, and positive results should be confirmed before definitive therapy. Processed using the ThinPrep Therapeutic Radiologist Automated cytology screening device (Gruvi). 02/18/2023 8:51 AM EDT [facility] Thin Prep ENDOCERVICAL STRUCTURE / Unknown 02/12/2023 3:11 PM EDT 02/12/2023 3:11 PM EDT us Ryann Rowley DO CYTOLOGY ORDERAB[place] [address] * COLOGUARD (02/03/2019 10:34 AM EDT) COLOGUARD CLINICAL REPORT Negative Not Applicable [facility] Comment: A negative result indicates a low likelihood that a colorectal cancer (CRC) or an advanced adenoma (adenomatous polyps with more advanced pre-malignant features) is present. The chance that a person with a negative Cologuard test has a colorectal cancer is less than 1 in 1500 (negative predictive value >99.9%) or has an advanced adenoma is less than 5.3% (negative predictive value 94.7%). These data are based on a prospective cross-sectional screening study of 10,000 individuals at average risk for colorectal cancer who were screened with both Cologuard and colonoscopy. (Cristin Moulton al, N Engl J Med 2014;370(14):7001-8652) COLOGUARD RE-SCREENING RECOMMENDATION: Periodic routine colorectal cancer screening is an important part of preventive healthcare for asymptomatic persons at average risk for colorectal cancer. Following a negative Cologuard result, the [place] [employer] and U.S. Multi-Society Task Force screening guidelines recommend a Cologuard re-screening interval of 3 years. References: [place] [employer] (ACS). Colorectal cancer prevention and early detection. [place], [place]: [place] [employer]; [updated 2015Sep 07]. https://www.cancer.org/cancer/zumei-pshwsj-knjsno/fohypjkxw-tjxiapeyg-cdsryqo/ac s-rec ommendations.html. Accessed January 14, 2018; Gomez DK, Lina CR, Diego CornejoK, Colorectal Cancer Screening: Recommendations for Physicians and Patients from the U.S. Multi-Society Task Force on Colorectal Cancer Screening, Am J Gastroenterology 2017; 112:7674-3458. Test Type: Composite algorithmic analysis of stool DNA-biomarkers with hemoglobin immunoassay. Quantitative values of individual biomarkers are not reportable and are not associated with individual biomarker result reference ranges. Precautions and Limitations: Cologuard is intended for colorectal cancer screening of adults of either sex, 50 years or older, who are at typical average-risk for colorectal cancer. A negative Cologuard test result does not guarantee the absence of colorectal cancer or advanced adenoma (pre-cancer). Patients with a negative Cologuard test result should be advised to continue participating in a colorectal cancer screening program. Cologuard may produce a positive result, even though a colonoscopy may not find colorectal cancer or precancerous polyps. The performance of Cologuard has been established in a cross sectional study (i.e., single point in time). Performance has not been evaluated in adults who have been previously tested with Cologuard or in patients less than 50 years of age. Cologuard has been approved for use by the U.S. FDA. Cologuard performance data in a 10,000 patient pivotal study using colonoscopy as the reference method can be accessed at the following location: www.[employer]Icinetic/results. Additional description of the Cologuard test process, warnings and precautions can be found at www.cologuardtest.com. Rx Only. Stool specimen (specimen) 02/03/2019 10:34 AM EDT 02/04/2019 6:38 PM EDT us Thad Monterroso MD [employer] - ORDERABLES Fin al [employer] [address] [place] [address], [facility] [employer] [facility] [place] [address] * HEPATITIS C ANTIBODY - SCREENING (01/23/2019 10:42 AM EDT) Hep C Ab Non-Reactiv e Non-Reacti ve 01/23/2019 5:33 PM EDT [facility] Blood VENOUS BLOOD / Unknown Venipuncture / Unknown 01/23/2019 10:42 AM EDT 01/23/2019 10:42 AM EDT us Thad Monterroso MD HEMATOLOGY ORDERABLES Final Re sult Performing Organization Address City/[facility] Co de Phone Number [facility] [address] [facility] , [place] [address] from Last 3 Months or Most Recently Relevant to Health Maintenance Additional Health Concerns Infection Onset Date Last Indicated ESBL organism 02/12/2023 03/01/2024 Insurance [place] Care Teams Hand Stamper Relationship Specialty Start Date End Date Ryann Rowley DO [address] [place] [address] PCP - General Family Medicine 11/10/23
--- OUTSIDE RECORDS SUMMARY | 2024-12-13 15:35 | XMS_ITS | Encounter Summary ---
Author Organization [place] [address] Care Team Providers Care Breakdown Man Name Role Phone RowleyRyann Primary Care Provider + [phone] Encounter Details Date Type Department Care Team (Late st Contact Info) Description 10/25/2024 Results Follow-Up [facility] [place] [address] [place] [address] Thad Monterroso MD [address] [place] [address] URINE CULTURE (NO STAIN) Social History Tobacco Use Types Packs/Day Years [...] Sae Stanley MA documented in this encounter Progress Notes * Thad Monterroso MD - 10/25/2024 1:43 PM EDT Her urine culture did grow out bacteria. The antibiotic prescribed should clear the infection. If she still been UTI symptoms after completing the course of antibiotics please follow-up or let us know documented in this encounter Plan of Treatment [...] documented as of this encounter Care Teams Breakdown Man Relationship Specialty Start Date End Date Ryann Rowley DO [address] [place] [address] PCP - General Family Medicine 11/10/23 documented as of this encounter
--- OUTSIDE RECORDS SUMMARY | 2024-12-13 15:35 | XMS_ITS | Encounter Summary ---
Author Organization [facility] Address [address] [place] [address] Care Team Providers Care Handbell Choir Director Name Role Phone Ryann Rowley DO Primary Care Provider + [phone] Reason for Visit * Reason Comments Medication Refill Encounter Details Date Type Department Care Team (Late st Contact Info) Description 11/16/2024 Refill [facility] [place] [facility] [address] [place] [address] Ryann Rowley DO [address] [place] [address] Medication Refill Social History Tobacco [...] Refills Last Filled Start Date End Date BREO ELLIPTA 200-25 mcg/dose Inhl Disk with DeviceIndications:A stveroniquea with COPD (HCC) INHALE 1 PUFF BY MOUTH INTO THE LUNGS DAILY 180 Each 1 11/20/2024 documented in this encounter Miscellaneous Notes * Telephone Encounter - Pratima Pierre CPhT - 11/20/2024 10:34 AM EDT Breo Ellipta - Future Visit: N/A Last Assessed Visit: 10/23/24 Follow-Up Date: 04/24/25 All protocols passed. Refills approved and sent to requesting pharmacy. Routed to [facility] if applicable. documented in this encounter Plan of Treatment Not on file documented as of this encounter Goals Goal Patient Goal Type Associated Problems Recent Progress Patient-Stated? Author Blood Pressure < 140/90 Blood Pressure 124/72(2024 9:47 AM EDT) Sae Conklin MA Maintain a healthy diet, exercise regularly and maintain an ideal body weight General No Thad Monterroso MD BMI (Calculated) < 30 General 29.3(11/25/19 9:47 AM EDT) No Thad Monterroso MD Stay Tobacco Free Lifestyle No Thad Monterroso MD HEMOGLOBIN A1C < 7.0 Result Component 5.8( 8:37 AM EDT) No Thad Monterroso MD documented as of this encounter Visit Diagnoses Diagnosis Asthma with COPD (HCC) Chronic obstructive asthma, unspecified documented in this encounter Discontinued Medications Medication Sig Discontinue Reason Start Date End Da te BREO ELLIPTA 200-25 mcg/dose Inhl Disk with DeviceIndications:Asthma with COPD (HCC) INHALE 1 PUFF BY MOUTH INTO THE LUNGS DAILY 08/22/2024 11/20/2024 documented as of this encounter Additional Health Concerns Infection Onset Date Last Indicated Resolved Time ESBL organism 02/12/2023 03/01/2024 documented as of this encounter Care Teams Handbell Choir Director Relationship Specialty Start Date End [place] [address] PCP - General Family Medicine 11/10/23 documented as of this encounter
--- OUTSIDE RECORDS SUMMARY | 2024-12-13 15:35 | XMS_ITS | Encounter Summary ---
Author Organization [place] Address [address] [facility] [address] Care Team Providers Care Research Development Director Name Role Phone Ryann Rowley DO Primary Care Provider + [phone] Encounter Details Date Type Department Care Team (Late st Contact Info) Description 10/16/2024 Orders Only [facility]P [facility] [address] [place] [address] Ryann Rowley DO [address] [place] [phone] Hypothyroidism (acquired) Social History Tobacco Use Types Packs/Day Years [...] of Assessment Author No 11/03/2021 10:00 AM EDSae Arreaga MA * Is the person blind or does he/she have serious difficulty seeing even when wearing glasses? Answer Date of Assessment Author No 11/03/2021 10:00 AM Sae Donato MA * Does this person have serious difficulty walking or climbing stairs? Answer Date of Assessment Author No 11/03/2021 10:00 AM Sae Donato MA * Does this person have difficulty dressing or bathing? Answer Date of Assessment Author No 11/03/2021 10:00 AM EDSae Arreaga MA * Because of a physical, mental [...] Refills Last Filled Start Date End Date LEVOthyroxine (SYNTHROID) 50 mcg Oral TabletIndications:H ypothyroidism (acquired) Take 1 Tablet by mouth daily. 90 Tablet 3 10/16/2024 documented in this encounter Plan of Treatment [...] as of this encounter Visit Diagnoses Diagnosis Hypothyroidism (acquired) Unspecified hypothyroidism documented in this encounter Discontinued Medications Medication Sig Discontinue Reason Start Date End Da te LEVOthyroxine (SYNTHROID) 50 mcg Oral TabletIndications:Hypoth yroidism (acquired) Take 1 Tablet by mouth daily. Reorder 04/26/2024 10/16/2024 documented as of this encounter Additional Health Concerns Infection Onset Date Last Indicated Resolved Time ESBL organism 02/12/2023 03/01/2024 documented as of this encounter Care Teams Research Development Director Relationship Specialty Start Date End Date Ryann Rowley DO [address] [place] [address] PCP - General Family Medicine 11/10/23 documented as of this encounter
--- OUTSIDE RECORDS SUMMARY | 2024-12-13 15:36 | XMS_ITS | Encounter Summary ---
Author Organization [place] Address [address] [place] [address] Care Team Providers Care Oyster Opener Name Role Phone Ryann Rowley DO Primary Care Provider + [phone] Reason for Visit * Reason Onset Date Comments Results 09/15/2024 Labs 09/14/24 Encounter Details Date Type Department Care Team (Late st Contact Info) Description 09/15/2024 Results Follow-Up [facility] [address] [place] [id number] Ryann Rowley DO [address] [place] [address] LIPID PANEL REFLEX, HEMOGLOBIN A1C, CBC WITH DIFF, Additional followed-up results: 5 Social History Tobacco Use Types Packs/Day Years [...] 11/03/2021 10:00 AM Sae Donato MA * Is the person blind or [...] Refills Last Filled Start Date End Date ergocalciferol (VITAMIN D) 1,250 mcg (50,000 unit) Oral CapsuleIndications :Vitamin D deficiency Take 1 Capsule by mouth once a week. 8 Capsule 2 09/15/2024 documented in this encounter Miscellaneous Notes * Telephone Encounter - Mago Pires MA - 09/15/2024 11:11 AM EDT Images from the original note were not included. Select the most appropriate reason for this telephone message: Patient Calling for Results Patient called for results on Lab Which Provider ordered the test? Dr. Rowley Date of test: 09/14/24 Advised patient of: abnormal result. Patient Instructions/ Questions: None Medications Ordered/Pended (if yes, list medication): Yes Rx for Vitamin D Medications/Orders Needed: No Pharmacy Location Verified: No Other: Please put in the patient results note that pt is aware of the following results documented in this encounter Plan of Treatment [...] Monterroso MD documented as of this encounter Results * VITAMIN D 25 HYDROXY (11/24/2024 10:35 AM EDT) Vit D 25 OH 30.9 30.0 - 150.0 ng/mL 11/24/2024 5:19 PM EDT [facility] Comment: Preferred: >= 30 ng/mL Insufficient: 21-29 ng/mL Deficient <= 20 ng/mL Possible Toxicity: >150 ng/mL Samples should not be taken from patients receiving therapy with high biotin doses (i.e. > 5 mg/day) until at least 8 hours following the last biotin administration. Blood VENOUS BLOOD / Unknown Venipuncture / Unknown 11/24/2024 10:35 AM EDT 11/24/2024 10:35 AM EDT us Ryann Rowley DO CHEMISTRY ORDERABLES Final R esult [facility] [address] [facility] , [place] [address] documented in this encounter Visit Diagnoses Diagnosis Vitamin D deficiency- Primary Unspecified vitamin D deficiency documented in this encounter Additional Health Concerns Infection Onset Date Last Indicated Resolved Time ESBL organism 02/12/2023 03/01/2024 documented as of this encounter Care Teams Oyster Opener Relationship Specialty Start Date End Date Ryann Rowley DO [employer] [place] [address] PCP - General Family Medicine 11/10/23 documented as of this encounter
== END 2024-12-13 23:59 | disposition home or self-care (01) ==
LOC: RAD 15:33
PROVIDERS: PCP Student in an Organized Health Care Education/Training Program; Visit Provider Internal Medicine Pulmonary Disease
DX: Z12.2 Encounter for screening for malignant neoplasm of respiratory organs (principal); Z87.891 Personal history of nicotine dependence; R91.8 Other nonspecific abnormal finding of lung field; I25.10 Atherosclerotic heart disease of native coronary artery without angina pectoris
CPT/HCPCS: 71271

== ENCOUNTER 2025-01-18 11:06 | Outpatient (CLI) | payer MEDICARE, MEDICAID, SELFPAY ==
--- OUTSIDE RECORDS SUMMARY | 2024-11-24 09:30 | XMS_ITS | Encounter Summary ---
Author Organization [place] [address] Care Team Providers Care Program Manager Rn Name Role Phone Ryann Rowley Primary Care Provider + [phone] Reason for Visit * Reason Comments Dizziness Hot flashes,nausea a nd diarrhea for a week Encounter Details Date Type Department Care Team (Latest Contact Info) Description 11/24/2024 9:30 AM EDT Office Visit SEP Pedro Luis [address] [place] [id number] Jenny Jacobson, PERSONAL BANKING ASSISTANT [address] [place] [address] Viral gastroenteritis (Primary Dx); Vitamin D deficiency Social History Tobacco Use Types Packs/Day Years [...] Answer Date Recorded PHQ-2 Total Score 0 11/24/2024 Sexually Active Control Partners Comments Not Currently Comments No Sex and Gender Information Value Date Recorded Sex Assigned at Not on file Legal Sex Female 7:36 AM EDT Gender Identity Not on file Sexual Orientation Not on file documented as of this encounter Last Filed Vital Signs Vital Sign Reading Time Taken Comments Blood Pressure 124/72 11/24/2024 9:47 AM EDT Pulse 71 11/24/2024 9:47 AM EDT Temperature 36.6 C (97.9 F) 11/24/2024 9:47 AM EDT Respiratory Rate 20 11/24/2024 9:47 AM EDT Oxygen Saturation 93% 11/24/2024 9:47 AM EDT Inhaled Oxygen Concentration - - Weight 74.8 kg (164 lb 12.8 oz) 11/24/2024 9:47 AM EDT Height 160 cm (5' 3 ) 11/24/2024 9:47 AM EDT Body Mass Index 29.19 11/24/2024 9:47 AM EDT documented in this encounter Functional Status [...] Stanley MA * Does this person have difficulty dressing or bathing? Answer Date of Assessment Author No 11/03/2021 10:00 AM EDT Sae Stanley MA * Because of a physical, mental or emotional condition, does this person have difficulty doing errands alone such as visiting a doctor's office or shopping? Answer Date of Assessment Author No 11/03/2021 10:00 AM EDT Sae Stanley MA * PHQ-2 Total Score Answer Date of Assessment Author 0 11/24/2024 9:00 AM EDT Di Rogers RMA * PHQ-9 Total Score Answer Date of Assessment Author 0 11/24/2024 9:00 AM EDT Di Rogers RMA * Question Answer Date of Assessment Author Little interest or pleasure in doing things 0 11/24/2024 9:00 AM EDT Di Elkins RMA Feeling down, depressed, or hopeless 0 11/24/2024 9:00 AM EDT Di Elkins RMA Trouble falling or staying asleep, or sleeping too much 0 11/24/2024 9:00 AM EDT Di Hsieh RMA Feeling tired or having mildred le energy 0 11/24/2024 9:00 AM EDT Di Elkins RMA Poor appetite or overeating 0 11/24/2024 9: 00 AM EDT Di Elkins RMA Feeling bad about yourself - or that you are a failure or have let yourself or your family down 0 11/24/2024 9:00 AM EDT Di Elkins RMA Trouble concentrating on things, such as reading the newspaper or watching television 0 11/24/2024 9:00 AM EDT Di Elkins RMA Moving or speaking so slowly that other people could have noticed. Or the opposite - being so fidgety or restless that you have been moving around a lot more than usual 0 11/24/2024 9:00 AM EDT Di Hsieh RMA Thoughts that you would be better off , or of hurting yourself in some way 0 11/24/2024 9:00 AM EDT Deny Elkins RMA * PHQ-2 Total Score Answer Date of Assessment Author 0 11/24/2024 9:00 AM EDT Di Rogers RMA documented as of this encounter Mental Status * Because of a physical, mental or emotional condition, does this person have serious difficulty concentrating, remembering or making decisions? Answer Entry Date Author No 11/03/2021 10:00 AM EDT Sae Stanley MA documented in this encounter Ordered Prescriptions Prescription Sig Dispense Quantity Refills Last Filled Start Date End Date loperamide (IMODIUM) 2 mg Oral CapsuleIndications:Vi ral gastroenteritis Take 1 Capsule by mouth 4 times daily as needed for Diarrhea. 20 Capsule 11/24/2024 ondansetron (ZOFRAN) 4 mg Oral TabletIndications:Vir al gastroenteritis Take 1 Tablet by mouth every 6 hours as needed for Nausea for up to 10 days. 30 Tablet 11/24/2024 5 documented in this encounter Progress Notes * Jenny Jacobson, PERSONAL BANKING ASSISTANT - 11/24/2024 9:30 AM EDT Assessment & Plan 1. Viral gastroenteritis. - Symptoms of dizziness, hot flashes, nausea, and diarrhea suggest a viral infection. The hot flashes and dizziness may be initial signs of the virus, while the gastrointestinal symptoms likely developed later. - Diarrhea can lead to dehydration and potassium loss, causing weakness and muscle spasms. - Blood work will be ordered to assess kidney function and electrolyte levels. - An antidiarrheal medication will be prescribed to manage the diarrhea. Ondansetron will be prescribed for nausea. She is advised to take meclizine at bedtime if needed for vertigo-related nausea. If symptoms persist by Wednesday, she should contact the office. 2. Vitamin D deficiency. - Her vitamin D level was previously recorded as 9. - Vitamin D is crucial for energy, bone health, and smooth muscle function. Low levels can increasethe risk of brittle bones post-menopause. - Blood work will be ordered to reassess her vitamin D levels. - Continue current vitamin D supplementation of 50,000 units once a week. Dx/Orders: Diagnoses and all orders for this visit: Viral gastroenteritis - ondansetron (ZOFRAN) 4 mg Oral Tablet; Take 1 Tablet by mouth every 6 hours as needed for Nausea for up to 10 days. Dispense: 30 Tablet; Refill: 0 - COMPREHENSIVE METABOLIC PANEL; Future - MAGNESIUM LEVEL; Future - loperamide (IMODIUM) 2 mg Oral Capsule; Take 1 Capsule by mouth 4 times daily as needed for Diarrhea. Dispense: 20 Capsule; Refill: 0 Vitamin D deficiency - VITAMIN D 25 HYDROXY; Future - VITAMIN D 25 HYDROXY Return if symptoms worsen or fail to improve. Subjective Trish Valle is a 64 y.o. female Chief Complaint Patient presents with Dizziness Hot flashes,nausea and diarrhea for a week History of Present Illness The patient is a 64-year-old female who presents today with complaints of dizziness, hot flashes, nausea, and diarrhea for a week. She has been experiencing these symptoms for the past week, with no known exposure to similar symptoms in her household or immediate environment. She reports no abdominal pain, blood in stool, or dark stools. Her condition has improved since Wednesday, which was the peak of her discomfort. On that day, she experienced a hot flash lasting over 20 minutes, followed by dizziness and nausea. She felt anurgent need to vomit and rushed to the bathroom, where she remained for an extended period. Upon returning to her room, she experienced dry heaving. She also reports feeling weak and continues to feel slightly nauseous. Yesterday, she had 6 to 8 episodes of loose stools, which were yellow in color. She has not taken any [id number] antidiarrheal medication. She is currently on a weekly dose of vitamin D 50,000 IU and would like to have her levels checked today. She was tested for anemia during her last visit and was not found to be anemic. She has a history of childhood anemia. Review of Systems Constitutional: Positive for activity change, appetite change, chills and fatigue. HENT: Negative. Eyes: Negative. Respiratory: Negative. Cardiovascular: Negative. Gastrointestinal: Positive for diarrhea, nausea and vomiting. Negative for abdominal distention andabdominal pain. Genitourinary: Negative for dysuria. Musculoskeletal: Negative. Skin: Negative. Neurological: Positive for dizziness and light-headedness. Psychiatric/Behavioral: Negative. Objective Blood pressure 124/72, pulse 71, temperature 97.9 ??F (36.6 ??C), temperature source Temporal, resp. rate 20, height 5' 3 (1.6 m), weight 164 lb 12.8 oz (74.8 kg), SpO2 93%, not currently . Body mass index is 29.19 kg/m??. Physical Exam Vitals reviewed. Constitutional: General: She is not in acute distress. HENT: Right Ear: Tympanic membrane and ear canal normal. Left Ear: Tympanic membrane and ear canal normal. Nose: Nose normal. Mouth/Throat: Mouth: Mucous membranes are moist. Eyes: Extraocular Movements: Extraocular movements intact. Conjunctiva/sclera: Conjunctivae normal. Cardiovascular: Rate and Rhythm: Normal rate and regular rhythm. Pulmonary: Effort: Pulmonary effort is normal. Breath sounds: Normal breath sounds. Abdominal: General: Bowel sounds are normal. There is no distension. Palpations: Abdomen is soft. Tenderness: There is no abdominal tenderness. Musculoskeletal: Cervical back: Neck supple. Right lower leg: No edema. Left lower leg: No edema. Skin: General: Skin is warm. Coloration: Skin is not jaundiced. Findings: No rash. Neurological: Mental Status: She is alert and oriented to person, place, and time. Psychiatric: Mood and Affect: Mood normal. Thought Content: Thought content normal. Results Results for orders placed or performed in visit on 11/24/24 VITAMIN D 25 HYDROXY Result Value Ref Range Vit D 25 OH 30.9 30.0 - 150.0 ng/mL COMPREHENSIVE METABOLIC PANEL Result Value Ref Range Sodium 139 136 - 145 mmol/L Potassium 4.0 3.5 - 5.0 mmol/L Chloride 100 98 - 107 mmol/L Total CO2 28 22 - 29 mmol/L Anion Gap 11 7 - 16 mmol/L Calcium 10.1 8.8 - 10.4 mg/dL Glucose Lvl 104 (H) 70 - 99 mg/dL BUN 12 8 - 23 mg/dL Creatinine 0.70 0.51 - 1.30 mg/dL Albumin 4.6 3.2 - 4.6 gm/dL Total Protein 7.7 6.4 - 8.3 gm/dL Bili Total 0.3 0.2 - 1.3 mg/dL ALT 7 <=41 U/L AST 18 <=40 U/L Alk Phos 80 36 - 123 U/L eGFR (CKD-EPIcr 2020) 97 >=60 mL/min/1.73 m2 MAGNESIUM LEVEL Result Value Ref Range Magnesium 2.1 1.6 - 2.4 mg/dL The provider educated the patient (or legal underwriting sales representative) on the use of the ambient listening artificial intelligence tool, [employer]. They were informed that this AI tool processes the conversation to generate a clinical note with the expected benefit of improved accuracy while achieving an improved encounter experience for the patient and provider.?The provider explained that the medical information captured by the AI tool including, but not limited to, diagnoses and treatment plan would be protected in accordance with applicable privacy laws and that all diagnoses and treatment decisions would be made by the provider. The provider explained that the note generated will be reviewed bythe provider for accuracy to minimize potential errors.? The patient was given an opportunity to ask questions and opt out of proceeding with the use of the AI tool. After being informed of such information, the patient (or legal underwriting sales representative), and each individual in attendance with the patient, verbally consented to the use of the AI tool. * Sae Stanley MA - 11/24/2024 9:30 AM EDT Venipuncture in the right antecubital vein with 22 gauge needle, length 1 1/2 inch. documented in this encounter Plan of Treatment [...] Procedure Name Priority Date/Time Associated Diagnosis Comments VITAMIN D 25 HYDROXY Routine 11/24/2024 10:35 AM EDT Vitamin D deficiency MAGNESIUM LEVEL Routine 11/24/2024 10:35 AM EDT Viral gastroenteritis COMPREHENSIVE METABOLIC PANEL Routine 11/24/2024 10:35 AM EDT Viral gastroenteritis documented in this encounter Results * VITAMIN D 25 HYDROXY (11/24/2024 10:35 AM EDT) Vit D 25 OH 30.9 30.0 - 150.0 ng/mL 11/24/2024 5:19 PM EDT [facility] Comment: Preferred: >= 30 ng/mL Insufficient: 21-29 ng/mL Deficient <= 20 ng/mL Possible Toxicity: >150 ng/mL Samples should not be taken from patients receiving therapy with high biotin doses (i.e. > 5 mg/day) until at least 8 hours following the last biotin administration. Blood VENOUS BLOOD / Unknown Venipuncture / Unknown 11/24/2024 10:35 AM EDT 11/24/2024 10:35 AM EDT Ryann Rowley DO CHEMISTRY ORDERABLES Final R esult Performing Organization Address [facility]/ZIP Co de Phone Number [facility], [address] , [place] [address] * MAGNESIUM LEVEL (11/24/2024 10:35 AM EDT) Magnesium 2.1 1.6 - 2.4 mg/dL 11/24/2024 4:59 PM EDT [facility] Blood VENOUS BLOOD / Unknown Venipuncture / Unknown 11/24/2024 10:35 AM EDT 11/24/2024 10:35 AM EDT Jenny Jacobson APRN CHEMISTRY ORDERABLES Hayley l Result Performing Organization Address [facility] Co de Phone Number [facility], [address] , [place] [address] * (ABNORMAL) COMPREHENSIVE METABOLIC PANEL (11/24/2024 10:35 AM EDT) Sodium 139 136 - 145 mmol/L 11/24/2024 4:59 PM EDT [facility] Potassium 4.0 3.5 - 5.0 mmol/L 11/24/2024 4:59 PM EDT [facility] Chloride 100 98 - 107 mmol/L 11/24/2024 4:59 PM EDT [facility] Total CO2 28 22 - 29 mmol/L 11/24/2024 4:59 PM EDT [facility] Anion Gap 11 7 - 16 mmol/L 11/24/2024 4:59 PM EDT [facility] Calcium 10.1 8.8 - 10.4 mg/dL 11/24/2024 4:59 PM EDT [facility] Glucose Lvl 104(H) 70 - 99 mg/dL 11/24/2024 4:59 PM EDT [facility], [facility] BUN 12 8 - 23 mg/dL 11/24/2024 4:59 PM EDT [facility] Creatinine 0.70 0.51 - 1.30 mg/dL 11/24/2024 4:59 PM EDT [facility], [facility] Albumin 4.6 3.2 - 4.6 gm/dL 11/24/2024 4:59 PM EDT [facility] Total Protein 7.7 6.4 - 8.3 gm/dL 11/24/2024 4:59 PM EDT [facility], [facility] Bili Total 0.3 0.2 - 1.3 mg/dL 11/24/2024 4:59 PM EDT [facility] ALT 7 <=41 U/L 11/24/2024 4:59 PM EDT [facility] AST 18 <=40 U/L 11/24/2024 4:59 PM EDT [facility] Alk Phos 80 36 - 123 U/L 11/24/2024 4:59 PM EDT [facility], [facility] eGFR (CKD-EPIcr 2020) 97 >=60 mL/min/1.7 3 m2 11/24/2024 4:59 PM EDT [facility], [facility] Comment:Estimated GFR was ca lculated using the CKD-EPIcr (2020) equation refit without race. The equation is recommended by the National Kidney Foundation - [place] [employer] of Nephrology Task Force. Blood VENOUS BLOOD / Unknown Venipuncture / Unknown 11/24/2024 10:35 AM EDT 11/24/2024 10:35 AM EDT us Jenny Jacobson PERSONAL BANKING ASSISTANT CHEMISTRY ORDERABLES Hayley l Result [facility], [facility] [address] [facility] , [place] [address] documented in this encounter Visit Diagnoses Diagnosis Viral gastroenteritis- Primary Intestinal infection due to other organism, not elsewhere classified Vitamin D deficiency Unspecified vitamin D deficiency documented in this encounter Orders Lab Orders Without Results Count Last Ordered D ate First Ordered Date VITAMIN D 25 HYDROXY 1 11/24/2024 documented in this encounter Additional Health Concerns Infection Onset Date Last Indicated Resolved Time ESBL organism 02/12/2023 03/01/2024 documented as of this encounter Care Teams Program Manager Rn Relationship Specialty Start Date End Date Ryann Rowley DO [address] [place] [id number] PCP - General Family Medicine 11/10/23 documented as of this encounter
--- OUTSIDE RECORDS SUMMARY | 2025-01-18 11:15 | XMS_ITS | Clinical Summary ---
Author Organization [facility] Address [address] [place] [address] Phone Care Team Providers Care Horse Rancher Name Role Phone Ryann Rowley DO Primary Care Provider + [phone] Allergies Active Allergy Reactions Criticality Noted Date Comments Lisinopril Cough 01/23/2019 Medications aspirin 325 mg Oral Tablet, Delayed Release (E.C.) Take 325 mg by mouth. 014 Active nitroGLYCERIN (NITROSTAT) 0.4 mg SL Tablet, Sublingual 1 under the tongue as needed for angina, may repeat q5mins for up three doses 019 Active Blood-Glucose Meter [facility] KitIndications:Typ e 2 diabetes mellitus with hyperlipidemia (HCC) 1 Device by NOT APPLICABLE route 4 times daily (before meals and nightly). 1 Kit 1 020 Active Lancets [facility] MiscIndications:Ty pe 2 diabetes mellitus with hyperlipidemia (HCC) 1 Device by NOT APPLICABLE route daily. 100 Each 3 020 Active azelastine (ASTELIN) 137 mcg (0.1 %) Nasl Aerosol, SprayIndications:S easonal allergic rhinitis, unspecified trigger 022 Active citalopram (CELEXA) 20 mg Oral TabletIndications: Hot flashes Take 1 Tablet by mouth daily. 90 Tablet 3 024 Active fUROsemide (LASIX) 40 mg Oral TabletIndications: Atherosclerosis of [place] coronary artery of [place] heart without angina pectoris,Diastolic dysfunction Take 1 [...] (ALDACTONE) 25 mg Oral TabletIndications: Atherosclerosis of [place] coronary artery of [place] heart without angina pectoris,Diastolic dysfunction Take 1 Tablet by mouth every 48 hours for 360 days. 45 Tablet 3 024 2024 Active lancets (ONETOUCH DELICA PLUS LANCET) 33 gauge [facility] 100 Each by Other route daily. 100 Each 3 Active Blood Sugar Diagnostic (ONETOUCH VERIO TEST STRIPS) [facility] StripIndications:T ype 2 diabetes mellitus with hyperlipidemia (HCC) 200 Strips by Other route daily. 100 Strip 2 Active ciprofloxacin HCl (CILOXAN) 0.3 % Opht DropsIndications:A cute bacterial conjunctivitis of left eye Place 1 Drop into the left eye 3 times daily. 5 mL 025 Active Additional Information Patient not taking.Reported on 10/23/2024 meclizine (ANTIVERT) 12.5 mg Oral TabletIndications: Dizziness Take 1 Tablet by mouth See Admin Instructions. Take one (1) tablet one (1) hour before travel, repeat every 12-24 hours if needed. 30 Tablet Active ergocalciferol (VITAMIN D) 1,250 mcg (50,000 [...] needed for Diarrhea. 20 Capsule 025 Active clopidogreL (PLAVIX) 75 mg Oral Tablet TAKE ONE TABLET BY MOUTH DAILY AT 9 AM 90 Tablet 11 025 Active clopidogreL (PLAVIX) 75 mg Oral Tablet Take 1 Tablet by mouth daily. 90 Tablet 2 024 2024 Discontinued Active Problems Patient Care Coordination No te Formatting of this note migh t be different from the original. Care gap audit completed by Radha Moreno RN on 04/28/2023. Problem Noted Date Diagnosed Date Vitamin D deficiency 09/15/2024 Leukocytosis 11/26/2023 Overview (12/01/2023): Peripheral smear showed normal cells 11/2023 History of coronary artery stent placement 02/12 History of CA (myocardial infarction) 02/12/2023 Neuropathic pain of upper extremity 02/12/2023 Obesity (BMI 30.0-34.9) 02/12/2023 Primary osteoarthritis of right knee 02/12/2023 ENRRIQUE on CPAP 02/12/2023 Overview (01/21/2024): Managed by [facility] Dr. Debra Mcmahon New mask and supplies [...] She is being managed by pulmnology at [facility], Dr. Paige Almaguer [phone] Assessment & Plan (10/23/2024 1:29 PM EDT): COPD is chronic and stable at this time. Stable on current inhaler regimen. -COPD is managed longitudinally requires follow-up every 6 months or sooner if issues occur Assessment & Plan (11/25/2023 11:39 AM EDT): continuous oxygen use, 3L rest, exertion 4L Follow with pulmonology Lung nodule 01/17/2020 Overview (11/25/2023): Being followed by [facility] pulmnology. Under surveillance, no growth. Follow up [...] Noted mild diastolic dysfunction on ECHO at [facility] in October 2019. EF 55% at that [...] AM EDT): Stable on celexa Atherosclerosis of [place] co ronary artery of [place] heart without angina pectoris 05/07/2016 Overview (10/08/2020): a. July 2005, STEMI with 4.5 x 24 Libert BMS to diagonal, EF 40%. b. December 2006, MPS fixed lateral defect. No reversibility, EF 60%. C. On BB, ARB, statin, ASA, and Plavix Cardiology at [facility], Dr. NILAM Nicolas Assessment & Plan (04/19/2024 4:40 PM EST): [...] 11/10/2023 Overview (10/08/2020): On CPAP Managed by [facility] Dr. Debra Mcmahon Tobacco use 05/07/2016 01/23/2019 Encounters Date Type Department Care Team Description 01/17/[address] [place] [address] Ryann Rowley, DO Medication Refill 12/20/[address] [place] [address] Ryann Rowley, DO 12/04/[address] [place] [address] Ryann Rowley, DO Medication Refill 11/26/2024 Results Follow-Up [address] [place] [address] Jenny Jacobson APRN VITAMIN D 25 HYDROXY, COMPREHENSIVE METABOLIC PANEL, MAGNESIUM LEVEL 11/24/2024 9:30 AM EDT Office Visit [address] [place] [address] Jenny Jacobson APRN Viral gastroenteritis (Primary Dx); Vitamin D deficiency 11/16/[address] [place] [address] Ryann Rowley, DO Medication Refill 10/25/2024 Results Follow-Up [address] [place] [address] Thad Monterroso MD URINE CULTURE (NO STAIN) 10/23/2024 1:15 PM EDT Office Visit [address] [place] [address] Thad Mnoterroso MD UTI (urinary tract infection), uncomplicated (Primary Dx); Chronic respiratory failure with hypoxia (HCC); COPD, moderate (HCC) from Last 3 Months Immunizations Immunization Administration [...] - Risk 60-74 years 1-dose series) 2022 Wellness Exam Medicare 11/25/2024 4, 11/03/2021, 10/26/2019 COVID-19 Vaccine ( - 2024- season) 2025 03/03/2022, 11/11/2020, 10/12/2020 Influenza Vaccine (#1) 2025 Hemoglobin A1c 03/17/2025 09/14/2024, 11/14, 05/18/2023, Additional history exists Kidney Health: uACR 09/14/2025 09/14/2024, 11/10/2023, 11/05/2022 Lipids 09/14/2025 09/14/2024, 11/14, 11/05/2022, Additional history exists Diabetic Eye Exam 10/26/2025 10/27/2023, 11/03/2021 Kidney Health: eGFR 11/24/2025 11/24/2024, 09/14/2024, 03/22/2024, Additional history exists Low Dose Lung Cancer Screening 12/13/2025 12/13/2024, 11/19/2023, 05/12/2023, Additional history exists Breast Cancer Screening 12/16/2025 [...] Procedure Name Priority Date/Time Associated Diagnosis Comments LDCT Routine 12/13/2024 MAGNESIUM LEVEL Routine 11/24/2024 10:35 AM EDT [...] Type 2 diabetes mellitus with hyperlipidemia (HCC) HEMOGLOBIN A1C Routine 09/14/2024 8:37 AM EDT Type 2 diabetes mellitus with hyperlipidemia (HCC) MM MAMMO DIGITAL ELOISA SCREEN BILAT Routine 12/17/2023 9:59 AM EDT Visit for screening mammogram DIABETES EYE EXAM Routine 10/27/2023 KNIFE OPERATOR CYTOLOGY REQUEST (PAP ONLY) Routine 02/12/2023 3:11 [...] Recently Relevant to Health Maintenance Results * HM LDCT (12/13/2024) 12/13/2024 Impressions SEP OFFICE - 12/20/2024 1:37 PM EDT Stable pulmonary nodules. Prominent coronary artery calcification. Lung RADS category 2S Recommend 12 month follow up LDCT us Historical Provider HEALTH MAINTENANCE Final Res ult Performing Organization Address City/[facility] de Phone Number SEP OFFICE * VITAMIN D 25 HYDROXY (11/24/2024 10:35 AM EDT) Vit D 25 OH 30.9 30.0 - 150.0 ng/mL 11/24/2024 5:19 PM EDT [facility] Comment: Preferred: >= 30 ng/mL Insufficient: 21-29 [...] ORDERABLES Final R esult Performing Organization Address [facility] de Phone Number Thry[facility] [address] [place] [address] , [place] [address] * MAGNESIUM LEVEL (11/24/2024 10:35 AM EDT) Pathologist [facility] Magnesium 2.1 1.6 - 2.4 mg/dL 11/24/2024 4:59 PM EDT [facility] Blood VENOUS BLOOD / Unknown Venipuncture / Unknown 11/24/2024 10:35 AM EDT 11/24/2024 10:35 AM EDT Jenny Jacobson APRN CHEMISTRY ORDERABLES Hayley l Result Performing Organization Address [facility] Co de Phone Number [facility] [address] [facility] , [place] [address] * (ABNORMAL) COMPREHENSIVE METABOLIC PANEL (11/24/2024 10:35 [...] 4:59 PM EDT [facility] BUN 12 8 - 23 mg/dL 11/24/2024 4:59 PM EDT [facility] Creatinine 0.70 0.51 - 1.30 mg/dL 11/24/2024 4:59 PM EDT [facility] Albumin 4.6 3.2 - 4.6 gm/dL 11/24/2024 4:59 PM EDT [facility] Total Protein 7.7 6.4 - 8.3 gm/dL 11/24/2024 4:59 PM EDT [facility] Bili Total 0.3 0.2 - 1.3 mg/dL 11/24/2024 4:59 PM EDT [facility] ALT 7 <=41 U/L 11/24/2024 4:59 PM EDT [facility] AST 18 <=40 U/L 11/24/2024 4:59 PM EDT [facility] Alk Phos 80 36 - 123 U/L 11/24/2024 4:59 PM EDT [facility] eGFR (CKD-EPIcr 2020) 97 >=60 mL/min/1.7 3 m2 11/24/2024 4:59 PM EDT [facility] Comment:Estimated GFR was ca lculated using the CKD-EPIcr (2020) equation refit without race. The equation is recommended by the National Kidney Foundation - [place] Society of Nephrology Task Force. Blood VENOUS BLOOD / Unknown Venipuncture / Unknown 11/24/2024 10:35 AM EDT 11/24/2024 10:35 AM EDT Jenny Jacobson APPLICATION INFRASTRUCTURE ENGINEER CHEMISTRY ORDERABLES Hayley l Result Performing Organization Address [facility] de Phone Number [facility] [address] [facility] , [place] [address] * (ABNORMAL) URINE CULTURE (NO STAIN) (10/23/2024 1:25 PM EDT) Pathologist [facility] Culture Positive Growth(A) 10/25/2024 1:18 PM EDT [facility] Culture >100,000 CFU/mL Staphylococcus saprophyticus SUSCEPTI BILITY RESULT 10/25/2024 1:18 PM EDT [facility] Comment: isolated in addition to multiple bacterial [...] ORDERAB LES Final Result Performing Organization Address [facility] de Phone Number [facility] [address] [facility] , [place] [address] * (ABNORMAL) SEP URINALYSIS POC [...] OF CARE TEST ORDERABLES Final Result [facility] [place] [address] [place] [address] * MICROALBUMIN/CREATININE RATIO URINE (09/14/2024 10:16 AM EDT) Urine Microalb <12.0 mg/L 09/15/2024 12:26 AM EDT [facility] Urine Creatinine 200.0 mg/dL 09/16/19 25 12:26 AM EDT [facility] Ur Microalb/Creat 025 12:26 AM EDT [facility] Comment: Because the albumin level is below [...] Rowley DO URINE ORDERABLES Final Resul t [facility] [address] [facility] , [place] [address] * (ABNORMAL) LIPID PANEL REFLEX (09/14/2024 8:37 AM EDT) Cholesterol 134 <200 mg/dL 09/14/2024 9:49 PM EDT [facility] Comment: < 200 Desirable 200 - 239 Borderline High >= 240 High Triglyceride 190(H) <150 mg/dL 09/14/2024 9:49 PM EDT [facility] Comment: < 150 Normal 150 - 199 Borderline High 200 - 499 High >= 500 Very High HDL 41 >=40 mg/dL 09/14/2024 9:49 PM EDT [facility] Comment: > 60 Optimal 40 - 60 Acceptable < 40 Low LDL Calculated 61 <100 mg/dL 09/14/2024 9:49 PM EDT [facility] Comment: < 100 Optimal 100 - 129 Near or above optimal 130 - 159 Borderline High 160 - 189 High >= 190 Very High The National Institutes of Health (NIH) equation is used for all lipid panels that report calculated LDL (LDL-C). Non-HDL-C Calculated 93 <=129 mg/dL 09/14/2024 9:49 PM EDT [facility] Comment: <130 Desirable 130-159 Above Desirable 160-189 Borderline High 190-219 High >= 220 Very High Fasting Specimen? Yes None 025 9:49 PM EDT [facility] Blood VENOUS BLOOD / Unknown Venipuncture / Unknown 09/14/2024 8:37 AM EDT 09/14/2024 8:37 AM EDT Ryann Rowley DO CHEMISTRY ORDERABLES Final R esult [facility], [address] , [place] [address] * (ABNORMAL) HEMOGLOBIN A1C (09/14/2024 8:37 AM EDT) Hgb A1C 5.8(H) 4.2 - 5.6 % 09/14/2024 9:54 PM EDT [facility] Est. Avg Glucose 120 mg/dL 09/14/2024 9:54 PM EDT [facility] Blood VENOUS BLOOD / Unknown Venipuncture / Unknown 09/14/2024 8:37 AM EDT 09/14/2024 8:37 AM EDT Narrative [facility] - 09/14/2024 9:54 PM EDT REFERENCE RANGE: Normal: 4.0-5.6% Pre-diabetes: 5.7-6.4% Provisional diagnosis of diabetes: >6.4% Hgb F>10% and anything which shortens red cell survival, such as hemolytic anemia, or unstable hemoglobin variants such as HbSS, HbSC, or HbCC, will lower the HbA1c value associated with a given level of glycemic control. us Ryann Rowley DO CHEMISTRY ORDERABLES Final R esult [facility] [address] , [place] [address] * MM MAMMO DIGITAL ELOISA SCREEN BILAT (12/17/2023 9:59 AM EDT) Anatomical Region Laterality Modality Breast Bilateral Mammography 12/20/2023 9:47 AM EDT Impressions 12/20/2023 9:47 AM EDT Negative ([id number]) ~ RECOMMENDATION: Routine screening mammogram in 1 [...] the next mammogram, in accordance with the [place] College [employer] Radiology and the Society of Breast Imaging recommendations. Narrative 12/20/2023 9:47 AM EDT Procedure:MM MAMMO DIGITAL ELOISA SCREEN BILAT ~ Reason for exam: screening, asymptomatic. Z12.31-Encounter for screening mammogram for malignant neoplasm of [id number]-CM ~ MM MAMMO DIGITAL ELOISA SCREEN BILAT [...] for screening mammogram for malignant neoplasm of [id number] ~ MM MAMMO DIGITAL ELOISA SCREEN BILAT Bilateral CC and MLO view(s) were taken. Technologist: RT Nia There are scattered fibroglandular densities. Prior study comparison: Compared with prior studies the most recentbeing 11/18/21, 01/03/20. No mammographic evidence of malignancy. No suspicious calcifications. ~ IMPRESSION: Negative (KTM-Taqfrrzo-0) ~ RECOMMENDATION: Routine screening mammogram in 1 [...] the next mammogram, in accordance with the [place] [employer] and the Society of Breast Imaging recommendations. Ryann Rowley DO IMG MAMMOGRAPHY ORDERABLES F inal Result * DIABETES EYE EXAM (10/27/2023) Left Diabetic Retinopathy Not Present Present/Not Present SEP OFFICE Right Diabetic Retinopathy Not Present Present/Not Present SEP OFFICE 10/27/2023 Historical Provider HEALTH MAINTENANCE Final Res ult [facility] OFFICE * KNIFE OPERATOR CYTOLOGY REQUEST (PAP ONLY) (02/12/2023 3:11 PM EDT) CASE REPORT Gynecologic Cytology Report Case: [id number] Authorizing Provider: Ryann Rowley DO Collected: 02/12/2023 1511 Ordering Location: [facility] Received: 02/12/2023 1511 First Screen: Xavier Nickerson CT Specimen: LIQUID-BASED PAP - CERVICAL/ENDOCERV ICAL, Cervix, Endocervical 02/18/2023 8:51 AM EDT [facility] PAP FINAL DIAGNOSIS Negative for intraepithelial lesion or malignancy 02/18/2023 8:51 AM EDT [facility] at 0851 EDT MICROSCOPIC DESCRIPTION Microscopic examination is performed and the findings corroborate the diagnosis. 02/18/2023 8:51 AM EDT [facility] PAP SMEAR ADEQUACY Satisfactory for evaluation 02/18/2023 8:51 AM EDT [facility] PAP ORGANISMS NOTED Abundant bacteria present. 02/18/2023 8:51 AM EDT [facility] ENDOCERVICAL T-ZONE Transformation zone present 02/18/2023 8:51 AM EDT [facility] EMBEDDED IMAGES 8:51 AM EDT [facility] PAP DISCLAIMER The Pap Smear is a screening test that aids in the detection of cervical cancer and cancer precursors. Both false positive and false negative results can occur. The test should be used at regular intervals, and positive results should be confirmed before definitive therapy. Processed using the ThinPrep Continuous Pillowcase Cutter Automated cytology screening device (Storypanda). 02/18/2023 8:51 AM EDT [facility] Thin Prep ENDOCERVICAL STRUCTURE / Unknown 02/12/2023 3:11 PM EDT 02/12/2023 3:11 PM EDT Ryann Rowley DO CYTOLOGY ORDERABLES Final Re sult [facility] [address] [place] [id number] * COLOGUARD (02/03/2019 10:34 AM EDT) COLOGUARD CLINICAL REPORT Negative Not Applicable [facility] Comment: A negative result indicates [...] (Cristin Moulton al, N Engl J Med 2014;370(14):9540-9225) COLOGUARD RE-SCREENING RECOMMENDATION: Periodic routine colorectal cancer screening is an important part of preventive healthcare for asymptomatic persons at average risk for colorectal cancer. Following a negative Cologuard result, the [place] Cancer Society and U.S. Multi-Society Task Force screening guidelines recommend a Cologuard re-screening interval of 3 years. References: [place] Cancer Society (ACS). Colorectal cancer prevention and early detection. [place], [place]: [place] Cancer Society; [updated 2015Sep 07]. https://www.cancer.org/cancer/gvxrc-hmxvez-lywwbn/hmojtrawa-vetkzguin-sfhuecb/ac s-rec ommendations.html. Accessed January 14, 2018; Gomez DK, Lina EVANS, Diego CornejoK, Colorectal Cancer Screening: Recommendations for Physicians and Patients from the U.S. Multi-Society Task Force on Colorectal Cancer Screening, Am J Gastroenterology 2017; 112:4818-4174. Test Type: Composite algorithmic analysis of stool [...] can be accessed at the following location: www.[facility] [email or web address]/results. Additional description of the Cologuard test process, warnings and precautions can be found at www.cologuardtest.com. Rx Only. Stool specimen (specimen) 02/03/2019 10:34 AM EDT 02/04/2019 6:38 PM EDT Thad Monterroso MD EXACT SCIENCE - ORDERABLES Fin al Result Performing Organization Address [facility] de Phone Number [facility], [address] [employer] [address] [place] [address] * HEPATITIS C ANTIBODY - SCREENING (01/23/2019 10:42 AM EDT) Hep C Ab Non-Reactiv e Non-Reacti ve 01/23/2019 5:33 PM EDT [facility] Blood VENOUS BLOOD / Unknown Venipuncture / Unknown 01/23/2019 10:42 AM EDT 01/23/2019 10:42 AM EDT Thad Monterroso MD HEMATOLOGY ORDERABLES Final Re sult Performing Organization Address City/[facility] Co de Phone Number [facility] [address] [facility] , [place] [address] from Last 3 Months or Most Recently Relevant to Health Maintenance Additional Health Concerns Infection Onset Date Last Indicated 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
--- OUTSIDE RECORDS SUMMARY | 2025-01-18 11:15 | XMS_ITS | Encounter Summary ---
Author Organization [facility] Address [address] [facility] [address] [place] [address] Care Team Providers Care Clean In Places Operator Name Role Phone Ryann Rowley DO Primary Care Provider + [phone] Encounter Details Date Type Department Care Team (Late st Contact Info) Description 12/20/2024 Abstract SEP Pedro Luis [address] [place] [address] Ryann Rowley DO [address] [place] [phone] Social History Tobacco Use Types Packs/Day Years [...] Entry Date Author No 11/03/2021 10:00 AM EDSae Arreaga MA documented in this encounter Plan of [...] Date/Time Associated Diagnosis Comments LDCT Routine 12/13/2024 documented in this encounter Results * LDCT (12/13/2024) 12/13/2024 Impressions SEP OFFICE - 12/20/2024 1:37 PM EDT Stable pulmonary nodules. Prominent coronary artery calcification. 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
--- OUTSIDE RECORDS SUMMARY | 2025-01-18 11:15 | XMS_ITS | Encounter Summary ---
Author Organization [facility] Address [facility] [place] [address] Care Team Providers Care Medical Services Assistant Name Role Phone Ryann Rowley DO Primary Care Provider + [phone] Reason for Visit * Reason Comments Medication Refill Encounter Details Date Type Department Care Team (Late st Contact Info) Description 01/17/2025 Refill [facility] Luis [address] [place] [address] Ryann Rowley DO [address] [place] [address] Medication Refill Social History Tobacco [...] 11/03/2021 10:00 AM EDSae Arreaga MA documented as of this encounter Mental Status * Because of a physical, mental or emotional condition, does this person have serious difficulty concentrating, remembering or making decisions? Answer Entry Date Author No 11/03/2021 10:00 AM EDT Sae Stanley MA documented in this encounter Ordered Prescriptions Prescription Sig Dispense Quantity Refills Last Filled Start Date End Date clopidogreL (PLAVIX) 75 mg Oral Tablet TAKE ONE TABLET BY MOUTH DAILY AT 9 AM 90 Tablet 11 01/18/2025 documented in this encounter Plan of Treatment [...] Diagnoses Not on filedocumented in this encounter Discontinued Medications Medication Sig Discontinue Reason Start Date End Da te clopidogreL (PLAVIX) 75 mg Oral Tablet Take 1 Tablet by mouth daily. 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
--- OUTSIDE RECORDS SUMMARY | 2025-01-18 11:15 | XMS_ITS | Clinical Summary ---
Author Organization [facility] Address [address] [place] [address] Care Team Providers Care Facilities Maintenance Manager Name Role Phone Unavailable Primary Care Provider [...] C SCREENING 04/12/2017 COVID-19 Vaccine ( - season) 2025 INFLUENZA VACCINE 02/14/2025 Insurance [employer] Member Subscriber Plan / Payer (Ef fective 2016-Present) Name:Trish Valle Relation to Subscriber:Self Name:Trish Valle Payer ID:[id number] Group ID:Not on file Type:Not on file Address: [address] MEDICARE ADVANTAGE
--- OUTSIDE RECORDS SUMMARY | 2025-01-18 11:16 | XMS_ITS | Encounter Summary ---
Author Organization [facility] Address [facility] [place] [address] Care Team Providers Care Heading Saw Operator Name Role Phone Ryann Rowley DO Primary Care Provider + [phone] Reason for Visit * Reason Comments Medication Refill Encounter Details Date Type Department Care Team (Late st Contact Info) Description 12/04/2024 Refill SEP Pedro Luis [address] [place] [address] Ryann Rowley DO [address] [place] [address] Medication Refill Social History Tobacco [...] supply with 3 refills. Pt notified via [employer] if active. documented in this encounter Plan [...] documented as of this encounter Care Teams Heading Saw Operator Relationship Specialty Start Date End Date Ryann Rowley DO [address] [place] [address] PCP - General Family Medicine 11/10/23 documented as of this encounter
--- OUTSIDE RECORDS SUMMARY | 2025-01-18 11:16 | XMS_ITS | Encounter Summary ---
Author Organization [place] [address] Care Team Providers Care Strip Mine Supervisor Name Role Phone RowleyRyann Primary Care Provider + [phone] Encounter Details Date Type Department Care Team (Latest Contact Info) Description 11/26/2024 Results Follow-Up SEP Pedro Luis [address] [place] [address] Jenny Jacobson, [employer] [address] [place] [address] VITAMIN D 25 HYDROXY, COMPREHENSIVE METABOLIC PANEL, [...] Author No 11/03/2021 10:00 AM EDT Sae Stalney MA documented in this encounter Plan of [...] documented as of this encounter Care Teams Strip Mine Supervisor Relationship Specialty Start Date End Date Ryann Rowley DO [address] [place] [address] PCP - General Family Medicine 11/10/23 documented as of this encounter
--- OUTSIDE RECORDS SUMMARY | 2025-01-18 11:17 | XMS_ITS | Encounter Summary ---
Author Organization [facility] Address [facility] [place] [address] Care Team Providers Care Welding Machine Operator Thermit Name Role Phone Ryann Rowley DO Primary Care Provider + [phone] Reason for Visit * Reason Comments Medication Refill Encounter Details Date Type Department Care Team (Late st Contact Info) Description 11/16/2024 Refill SEP [facility] Luis [address] [place] [address] Ryann Rowley DO [address] [place] [address] Medication Refill Social History Tobacco [...] and sent to requesting pharmacy. Routed to [facility] if applicable. documented in this encounter Plan [...] documented as of this encounter Care Teams Welding Machine Operator Thermit Relationship Specialty Start Date End Date [place] [address] PCP - General Family Medicine 11/10/23 documented as of this encounter
--- OUTSIDE RECORDS SUMMARY | 2025-01-18 11:17 | XMS_ITS | Encounter Summary ---
Author Organization [facility] [place] [address] Care Team Providers Care Makeup Artist Name Role Phone RowleyRyann Primary Care Provider + [phone] Encounter Details Date Type Department Care Team (Late st Contact Info) Description 10/25/2024 Results Follow-Up SEP Pedro Luis [address] [place] [address] Thad Monterroso MD [address] [address] URINE CULTURE (NO STAIN) Social History Tobacco [...] mildred le energy 0 11/24/2024 9:00 AM PEGGYT Di Elkins RMA Poor appetite or overeating 0 11/24/2024 9: 00 AM EDT Di Elkins RMA Feeling bad about yourself - or that you are a failure or have let yourself or your family down 0 11/24/2024 9:00 AM EDT Di Elkins RMA Trouble concentrating on things, such as reading the newspaper or watching television 0 11/24/2024 9:00 AM EDT Di Elkins, RMRobson Moving or speaking so slowly that other people could have noticed. 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
[2025-01-18 11:40] LABS: Hematocrit 40.0 % (37.0-47.0); Hemoglobin 12.8 g/dL (12.2-16.2); Immature Granulocytes % 0.3 %; Mean Corpuscular HGB Conc 32.0 g/dL (31.8-35.4); Mean Corpuscular Hemoglobin 29.0 pg (27.0-31.2); Mean Corpuscular Volume 90.7 fl (81-99); Nucleated Red Blood Cells % 0 %; Platelet Count 281 K/mm3 (142-424); Red Blood Count 4.41 M/mm3 (4.20-5.40); Red Cell Distribution Width-SD 43.4 fL; White Blood Count 9.1 K/mm3 (4.8-10.8)
[2025-01-18 11:59] LABS: Albumin Level 4.4 g/dl (3.5-5.0); Chloride 107 mmol/L (98-107); Potassium 4.3 mmoL/L (3.5-5.1); Sodium 142 mmol/L (136-145)
[2025-01-18 12:01] LABS: Bilirubin,Unconjugated 0.2 mg/dL (0.0-1.1); Blood Urea Nitrogen 9 mg/dl (7-17); Creatinine,Serum 0.60 mg/dl (0.52-1.04); Estimated Glomerular Filt Rate 101 ml/min (>60); GFR (African American) 123 ML/MIN (>60)
[2025-01-18 12:02] LABS: Alanine Aminotransferase 9 U/L (12-78); Alkaline Phosphatase 66 U/L (38-126); Anion Gap 9.3 mEq/L (5-15); Aspartate Amino Transferase 26 U/L (14-36); Bilirubin,Direct 0.1 mg/dl (0.0-0.4); Bilirubin,Indirect 0.2 mg/dL (0.0-0.9); Bilirubin,Total 0.3 mg/dl (0.2-1.3); Calcium 9.4 mg/dl (8.4-10.2); Carbon Dioxide 30 mmol/L (22.0-30.0); Cholesterol 155 mg/dl (140-200); Glucose 87 mg/dl (74-100); HDL Cholesterol 41 mg/dl (40-60); Magnesium 1.9 mg/dl (1.6-2.3); Total Protein,Serum 6.9 g/dl (6.3-8.2); Triglycerides 383 mg/dl (30-150)
--- OUTSIDE RECORDS SUMMARY | 2025-01-18 12:15 | XMS_ITS | CCD ---
Author Organization Unknown Care Team Providers Care Water Gas Operator Name Role Phone Unavailable Primary Care Provider Unavailabl e Unavailable Chronic Care Management Unavaila ble Summary Purpose DataExchange Insurance Providers Payer name Policy type / Coverage type Covered republican ID Effective Begin Date Effective End Date [facility] [id number] Unknown Unknown Family History Family History data not found Medication Administered No Medication Administered data Reason For Visit No Reason For Visit data Medical Equipment No Medical Equipment data Advance Directives No Advance Directive data
[2025-01-18 12:18] LABS: Free T4 (Free Thyroxine) 1.09 ng/dl (0.78-2.19)
[2025-01-18 12:35] LABS: Thyroid Stimulating Hormone 1.20 uIU/mL (0.465-4.68)
== END 2025-01-18 23:59 | disposition home or self-care (01) ==
LOC: LAB 11:07
PROVIDERS: PCP Student in an Organized Health Care Education/Training Program; Visit Provider Nurse Practitioner
DX: I25.10 Atherosclerotic heart disease of native coronary artery without angina pectoris (principal); I10 Essential (primary) hypertension; E78.5 Hyperlipidemia, unspecified
CPT/HCPCS: 36415; 80048; 80061; 80076; 83735; 84439; 84443; 85025